=== PATIENT | female | born 1950 | race Caucasian/White ===

== ENCOUNTER → 2017-09-16 | Outpatient (CLI) | payer BC ==
--- NOTE | 2017-09-17 13:19 | MM ---
Reason for exam: screening (asymptomatic). Last mammogram was performed 1 year and 2 months ago. History: Patient is postmenopausal and is nulliparous. Benign stereotactic core biopsy of the left breast, May 15, 1999. Core biopsy of the left breast. Taking estrogen for 12 years. Physical Findings: A clinical breast exam by your physician is recommended on an annual basis and results should be correlated with mammographic findings. MG Screening Mammo w CAD Bilateral CC and MLO view(s) were taken. Prior study comparison: July 16, 2016, bilateral MG screening mammo w CAD. June 27, 2015, bilateral MG screening mammo w CAD. There are scattered fibroglandular densities. There are few typically benign round calcifications in both breasts. Previous mammotome biopsy in the left breast. There is no discrete abnormality. ASSESSMENT: Benign, BI-RAD 2 RECOMMENDATION: Routine screening mammogram of both breasts in 1 year.
== END | disposition home or self-care (01) ==
LOC: RADMAMWWP 11:10
PROVIDERS: ATTEND Obstetrics & Gynecology
DX: Z12.31 Encounter for screening mammogram for malignant neoplasm of breast (principal)
CPT/HCPCS: 77067

== ENCOUNTER → 2018-10-06 | Outpatient (CLI) | payer BC ==
--- NOTE | 2018-10-07 11:21 | MM ---
Reason for exam: screening (asymptomatic). Last mammogram was performed 1 year and 1 month ago. History: Patient is postmenopausal and is nulliparous. Benign stereotactic core biopsy of the left breast, May 15, 1999. Core biopsy of the left breast. Taking estrogen for 12 years. Physical Findings: A clinical breast exam by your physician is recommended on an annual basis and results should be correlated with mammographic findings. MG Screening Mammo w CAD Bilateral CC and MLO view(s) were taken. Prior study comparison: September 16, 2017, bilateral MG screening mammo w CAD. July 16, 2016, bilateral MG screening mammo w CAD. There are scattered fibroglandular densities. No significant changes when compared with prior studies. ASSESSMENT: Benign, BI-RAD 2 RECOMMENDATION: Routine screening mammogram of both breasts in 1 year.
== END | disposition home or self-care (01) ==
LOC: RADMAMWWP 11:32
PROVIDERS: ATTEND Obstetrics & Gynecology
DX: Z12.31 Encounter for screening mammogram for malignant neoplasm of breast (principal)
CPT/HCPCS: 77067

== ENCOUNTER → 2018-11-16 | Outpatient (CLI) | payer BC ==
--- NOTE | 2018-11-17 12:08 | BD ---
EXAMINATION TYPE: Axial Bone Density DATE OF EXAM: 11/16/2018 COMPARISON: 2013 CLINICAL HISTORY: Postmenopausal female. Osteoporosis screening. Height: 65 Weight: 219 FRAX RISK QUESTIONS: Alcohol (3 or more units per day): no Family History (Parent hip fracture): no Glucocorticoids (More than 3mos): no (Ex: prednisone, prednisolone, methylprednisolone, dexamethasone, and hydrocortisone). History of Fracture in Adulthood: no Secondary Osteoporosis: 1. Type 1 Diabetes: no 2. Hyperthyroidism: no 3. Menopause before 45: yes 4. Malnutrition: no 5. Chronic liver disease: no Rheumatoid Arthritis: no Current Tobacco Use: no RISK FACTORS HISTORY OF: Family History of Osteoporosis: no Active: yes Diet low in dairy products/other sources of calcium: no Postmenopausal woman: yes Take estrogen and/or progesterone medications: not now How long: over 12 years Lost more than 2 inches in height since high school: no, however patient states height may have been 67 inches at one time Frequent falls: no Poor Health: no Hyperparathyroidism: no Adrenal Insufficiency: no MEDICATIONS: Prednisone or other steroids: no Thyroid Medications: no Osteoporosis Medications: no Additional Medications: calcium, blood pressure meds, cholesterol meds Additional History: just stopped hormones EXAM MEASUREMENTS: Bone mineral densitometry was performed using the [employer]. Bone mineral density as measured about the Lumbar spine is: ----- L1-L4(G/cm2): 1.982 T Score Values are as follows: ----- L2: 8.5 ----- L3: 4.9 ----- L4: 5.8 ----- L1-L4: 6.7 Bone mineral density has: Increased 1.4 % since study of: 10/26/2013 Bone mineral density about the R hip (g/cm2): 1.004 Bone mineral density about the L hip (g/cm2): 1.080 T Score values are as follows: -----R Neck: -0.2 -----L Neck: 0.3 -----R Total: 0.3 -----L Total: 0.6 Bone mineral density has: Decreased -2.7% since study of: 10/26/2013 IMPRESSION: Normal (Values between +1 and -1 indicate normal bone mass). Consider repeating this study in 5 year s or sooner if there is some new clinical indication. NOTE: T-SCORE=SD OF THE YOUNG ADULT MEAN.
== END | disposition home or self-care (01) ==
LOC: RADBDWWP 13:14
PROVIDERS: ATTEND Obstetrics & Gynecology
DX: Z13.820 Encounter for screening for osteoporosis (principal); Z78.0 Asymptomatic menopausal state
CPT/HCPCS: 77080

== ENCOUNTER → 2019-10-11 | Outpatient (CLI) | payer BC ==
--- NOTE | 2019-10-12 11:17 | MM ---
Reason for exam: screening (asymptomatic). Last mammogram was performed 1 year ago. History: Patient is postmenopausal and is nulliparous. Benign stereotactic core biopsy of the left breast, May 15, 1999. Core biopsy of the left breast. Took hormonal contraceptives for 20 years. Took estrogen for 12 years. Physical Findings: A clinical breast exam by your physician is recommended on an annual basis and results should be correlated with mammographic findings. MG Screening Mammo w CAD Bilateral CC and MLO view(s) were taken. Prior study comparison: October 06, 2018, bilateral MG screening mammo w CAD. September 16, 2017, bilateral MG screening mammo w CAD. There are scattered fibroglandular densities. There are benign appearing round calcifications bilaterally. Previous mammotome biopsy in the left breast. There is no discrete abnormality. ASSESSMENT: Benign, BI-RAD 2 RECOMMENDATION: Routine screening mammogram of both breasts in 1 year.
== END | disposition home or self-care (01) ==
LOC: RADMAMWWP 16:44
PROVIDERS: ATTEND Obstetrics & Gynecology
DX: Z12.31 Encounter for screening mammogram for malignant neoplasm of breast (principal)
CPT/HCPCS: 77067

== ENCOUNTER → 2020-07-13 | Outpatient (CLI) | payer BC | END | disposition home or self-care (01) | LOC: LABPAT 13:27 | PROVIDERS: ATTEND Surgery | DX: Z01.818 Encounter for other preprocedural examination (principal); Z20.828 Contact with and (suspected) exposure to other viral communicable diseases | CPT/HCPCS: U0003; C9803 ==

== ENCOUNTER 2020-07-20 08:50 | Day surgery (SDC) | payer BC ==
[2020-07-18 15:07] VITALS: BMI 34.4
[~2020-07-20 08:50] MED LIST: LACTATED RINGERS 1,000 ML IV SCH
[2020-07-20] MEDS ORDERED: LIDOCAINE 1% (10MG/ML) FOR IV START INTRADERMA ONE (09:18)
[2020-07-20 09:21] VITALS: TEMP 97.7
[2020-07-20] MEDS ORDERED: PROPOFOL 10 MG/ML 20 ML VIAL IV ONE (09:46)
--- NOTE | 2020-07-20 10:30 | P.GSHP ---
History of Present Illness H&P Date: 07/20/20 69-year-old female presents today for screening colonoscopy. She states that in her past colonoscopy she has had a polyp found. She denies any blood in her stool. She denies any changes in bowel function. - Review of Systems All systems: negative Past Medical History Past Medical History: Hyperlipidemia, Hypertension Additional Past Medical History / Comment(s): hx colon polyps History of Any Multi-Drug Resistant Organisms: None Reported Past Surgical History: Hysterectomy Past Anesthesia/Blood Transfusion Reactions: No Reported Reaction, Postoperative Nausea & Vomiting (PONV) Smoking Status: Never smoker Medications and Allergies Home Medications Medication Instructions Recorded Confirmed Type Ascorbic Acid [Vitamin C] 500 mg PO DAILY 07/18/20 07/20/20 History Glucos Sul 2Kcl/MSM/Chond/C/Mn 1 each PO DAILY 07/18/20 07/20/20 History [Glucosamine Chondroitin Cap] Multivitamins, Thera [Multivitamin 1 tab PO DAILY 07/18/20 07/20/20 History (formulary)] amLODIPine BESYLATE 5 mg PO DAILY 07/18/20 07/20/20 History lisinopriL [Zestril] 20 mg PO BID 07/18/20 07/20/20 History Allergies Allergy/AdvReac Type Severity Reaction Status Date / Time latex Allergy Anaphylaxis Verified 07/20/20 09:04 Surgical - Exam Osteopathic Statement: *. No significant issues noted on an osteopathic structural exam other than those noted in the History and Physical/Consult. Vital Signs Temp Pulse Resp BP Pulse Ox 97.7 F 85 18 123/58 94 L 07/20/20 09:15 07/20/20 09:15 07/20/20 09:15 07/20/20 09:15 07/20/20 09:15 - General well nourished, no distress - ENT no hearing loss - Neck trachea midline - Respiratory normal respiratory effort - Abdomen Abdomen: soft, non tender - Psychiatric oriented to time, oriented to person, oriented to place Assessment and Plan Plan: Plan for screening colonoscopy. Risks, benefits and alternatives to the procedure were split to the patient. The patient did provide consent. Recommendations after procedure.
--- NOTE | 2020-07-20 10:32 | P.PCN ---
Date of Procedure: 07/20/20 Preoperative Diagnosis: Screening for colon cancer Postoperative Diagnosis: Redundant colon Internal hemorrhoids Procedure(s) Performed: Colonoscopy Anesthesia: MAC Surgeon: Galen Short Pathology: none sent Condition: stable Disposition: same day Indications for Procedure: 69-year-old female presents for screening colonoscopy. Risks, benefits and alternatives were provided to the patient. Patient did provide consent prior to entering the endoscopy suite. Operative Findings: Extremely redundant colon Internal hemorrhoids Description of Procedure: The patient was brought into the endoscopy suite. He was then placed in left lateral decubitus position and adequate sedation was achieved using conscious sedation. A digital rectal exam was performed and mild internal hemorrhoids were palpated. An endoscope was then placed in the rectum and advanced to the cecum as identified by landmarks including the appendiceal orifice and the ileocecal valve. The prep was good. The colonoscope was then slowly withdrawn, examining for any mucosal abnormalities. The cecum, ascending, transverse, descending and sigmoid colon were visualized adequately. There were no large neoplastic lesions throughout the colon. There were no obvious polyps noted throughout the colon. There was no evidence of diverticulosis. The colon was noted to be extremely redundant. Retroflexion was performed in the rectum and mild internal hemorrhoids were visible. Excess air was removed, the colonoscope withdrawn and the procedure terminated. The patient was then transferred to the recovery unit in stable condition. Repeat colonoscopy should be performed in 5 years based on the patient's history of colon polyps..
[2020-07-20 10:33] VITALS: RESP 16
[2020-07-20] MEDS ORDERED: ONDANSETRON 4 MG/2 ML VIAL ONE (10:44)
[2020-07-20] MEDS ORDERED: ONDANSETRON 4 MG/2 ML VIAL IVP ONE (10:47)
[2020-07-20 10:53] VITALS: BP 143/85; PULSE 59
== END 2020-07-20 11:23 | disposition home or self-care (01) ==
LOC: ORWHC2ENDO 08:50
PROVIDERS: ATTEND Surgery
DX: Z12.11 Encounter for screening for malignant neoplasm of colon (principal); Q43.8 Other specified congenital malformations of intestine; K64.8 Other hemorrhoids; Z86.010 Personal history of colon polyps; E78.5 Hyperlipidemia, unspecified; I10 Essential (primary) hypertension; Z90.710 Acquired absence of both cervix and uterus; Z98.890 Other specified postprocedural states; Z79.899 Other long term (current) drug therapy; Z91.040 Latex allergy status
CPT/HCPCS: J2405; J2704; G0105

== ENCOUNTER 2021-02-06 07:35 | Day surgery (SDC) | payer BC ==
[2021-01-31 15:32] VITALS: BMI 36.0
[~2021-02-06 07:35] MED LIST changes: +DEXAMETHASONE SOD PHOSPHATE 4 MG/ML 1 ML VIAL IV ONE; -LACTATED RINGERS 1,000 ML IV SCH; +LIDOCAINE 1% (10MG/ML) FOR IV START INTRADERMA PRN; +MIDAZOLAM 2 MG/2 ML VIAL IV PRN; +ONDANSETRON 4 MG/2 ML VIAL IVP ONE; +ceFAZolin 1,000 MG in SODIUM CHLORIDE 0.9% IRRIGATIO 1,000 ML IRRIGATION PRN
[2021-02-06] MEDS: LACTATED RINGERS 1,000 ML IV SCH (08:04)
[2021-02-06] MEDS ORDERED: methylPREDNISolone ACETATE 80 MG/ML 1 ML VIAL INJ ONE (09:01)
[2021-02-06] MEDS ORDERED: GELATIN SPONGE,ABSORB (LARGE) 1 EACH SPONGE TOPICAL ONE (09:01)
[2021-02-06] MEDS ORDERED: THROMBIN (BOVINE) 5,000 UNIT VIAL TOPICAL ONE (09:02)
[2021-02-06] MEDS ORDERED: SUCCINYLCHOLINE CHLORIDE 100 MG/5 ML SYR IV ONE (09:22)
[2021-02-06] MEDS ORDERED: ePHEDrine SULFATE/0.9% NACL/PF 50 MG/5 ML SYRINGE IV ONE (09:22)
[2021-02-06] MEDS ORDERED: MIDAZOLAM 2 MG/2 ML VIAL ONE (09:22)
[2021-02-06] MEDS ORDERED: GLYCOPYRROLATE 0.2 MG/ML 2 ML VIAL ONE (09:22)
[2021-02-06] MEDS ORDERED: PHENYLEPHRINE-0.9% NACL SYG 1,000 MCG/10 ML SYRINGE ONE (09:22)
[2021-02-06] MEDS ORDERED: NEOSTIGMINE 1 MG/ML 10 ML VIAL ONE (09:22)
[2021-02-06] MEDS ORDERED: LIDOCAINE 1% INJ 10MG/ML (20 ML MDV) ONE (09:22)
[2021-02-06] MEDS ORDERED: KETAMINE 10 MG/ML 20 ML VIAL ONE (09:22)
[2021-02-06] MEDS ORDERED: fentaNYL (PF) 50 MCG/ML 2 ML AMP ONE (09:22)
[2021-02-06] MEDS ORDERED: PROPOFOL 10 MG/ML 20 ML VIAL IV ONE (09:22)
[2021-02-06] MEDS ORDERED: ROCURONIUM 10 MG/ML (5 ML VIAL) IV ONE (09:22)
[2021-02-06] MEDS ORDERED: LIDOCAINE 1%-EPI 1:100,000 20 ML VIAL SQ ONE (09:58)
[2021-02-06] MEDS ORDERED: LACTATED RINGERS 1,000 ML IV ONE (10:53)
[2021-02-06] MEDS ORDERED: HYDROmorphone 1 MG/ML 1 ML SYRINGE IVP PRN (11:13)
[2021-02-06] MEDS ORDERED: HYDROmorphone 0.5 MG/0.5 ML SYRINGE IVP PRN (11:13)
[2021-02-06] MEDS ORDERED: BENZOCAINE/MENTHOL LOZENG 1 EACH LOZENGE MUCOUS MEM PRN (11:13)
[2021-02-06] MEDS ORDERED: KETOROLAC 15 MG/ML 1 ML VIAL IVP PRN (11:14)
[2021-02-06] MEDS ORDERED: ONDANSETRON 4 MG/2 ML VIAL IVP PRN (11:14)
[2021-02-06] MEDS ORDERED: IBUPROFEN 600 MG TAB PO PRN (11:14)
[2021-02-06] MEDS ORDERED: CYCLOBENZAPRINE 10 MG TAB PO PRN (11:14)
[2021-02-06] MEDS ORDERED: ACETAMINOPHEN TAB 325 MG TAB PO PRN (11:14)
[2021-02-06] MEDS ORDERED: traMADol 50 MG TAB PO PRN (11:16)
--- NOTE | 2021-02-06 11:28 | P.OP ---
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 Blackburn File System Installer: Claudio Ferreira is present throughout the entire the case persistence during positioning, dissection, exposure, visualization, and all crucial elements of the case as well as closure. Anesthesia: General anesthesia per Dr. Dr. Denny Estimated blood loss: Approximately 50 mL Complications: None apparent Components implanted: None Disposition: To recovery room in good stable condition. OPERATIVE INDICATIONS The patient has been having issues in their lower back and lower extremities. She has a number of degenerative changes at her lumbar spine with asymmetric disc degeneration and facet arthrosis. She has been having regular pain over the past several years but had significant increased pain in her right lower extremity. She is found have a significant right far lateral disc herniation at L3 4 which correlate well with her new right lower extremity symptoms. The patient has been through conservative treatment. She is not having any prolonged benefit despite aggressive conservative care. We discussed the possibility of decompression alone versus the possibility of decompression and and fusion. The patient was hopeful to prevent fusion surgery. She had significant foraminal stenosis due to the far lateral disc herniation and we felt that she may have good relief of her new leg pain with decompression at that level with discectomy. We discussed various treatment options including surgery, and the patient wishes to proceed with surgery We discussed the risk, patient's alternatives and benefits of surgery including but not limited to, risk of bleeding risk of infection, risk of need for further surgery, risk of decreased, loss of motion, loss of function, nerve damage, paralysis, heart a ttack, blindness and . OPERATIVE SUMMARY After discussing all the risks, patient alternatives and benefits at length, the patient elected to proceed with surgical intervention, signed informed consent, and presented for their procedure. The patient was seen and examined in the preoperative holding area and the surgical site was marked. The patient was given antibiotics and brought to the operating room. The patient was sedated and intubated by anesthesia in standard fashion. The patient was positioned on to the operating room table in a prone position on the appropriate frame which was well-padded and well molded. We were careful to pad any bony prominences and pressure points. We were careful to maintain the patient's cervical spine and good neutral alignment and position throughout. The patient was prepped and draped in a normal standard fashion. An appropriate timeout and keystone protocol performed. We were able to proceed with the surgery. Fluoroscopy was utilized to establish the appropriate level. The local wound area was infiltrated with local anesthetic. An incision was made at the midline longitudinally over the appropriate levels at L3 4 on the right. Dissection was taken down subcutaneously to the level of the fascia which was split midline. Dissection was taken over the lamina. Intraoperative fluoroscopy was taken which showed a marker at the appropriate level at L3 4 on the right. With the appropriate level positively confirmed, we were able to proceed with laminectomy. The wound was copiously irrigated and suctioned dry as had been done periodically throughout the case. I performed a laminectomy with a combination of curettes and a high-speed bur and Kerrison rongeurs. A small medial facetectomy was performed again further access. A partial foraminotomy was also performed. I tried to preserve as much of the facet as possible to maintain stability and undermined significant stenosis at the undersurface the facet to gain access to the disc space. Portions of the ligamentum flavum were taken down to expose the dura and traversing nerve root. I was able to mobilize the traversing nerve root and gain access to the disc space. Note was made of obvious compression from the disc. There is significant spurring and severe foraminal stenosis. I was able get decompression dorsally. Protecting the soft tissue structures, a small annulotomy was established. I was able to perform discectomy and remove any extruded disc fragments and any loose fragments from within the disc itself. There is some severe disc desiccation noted. I tried to preserve the disc annulus that appeared stable. There were no further extruded fragments noted. There is no evidence of dural tear or leak. Good hemostasis maintained. The wound was copiously irrigated and suctioned dry. Good decompression and discectomy was noted. We were able to proceed with closure. The fascia was closed for a watertight closure. The subcuticular tissue was closed with absorbable suture. The wound was cleaned and dried and dressed with the appropriate dressing. The drapes were broken down. The patient was gently rolled back onto their hospital bed being careful to maintain their cervical spine and good neutral alignment and position. They were woken up by anesthesia, extubated, and brought to the recovery room in good stable condition. The patient will be admitted to the hospital for observation and for appropriate postoperative care, medical management and monitoring. We will continue to follow them closely about the postoperative course.
[2021-02-06] MEDS: HYDROmorphone 0.5 MG/0.5 ML SYRINGE IVP PRN ×2 (11:33→12:09)
[2021-02-06] MEDS ORDERED: ONDANSETRON 4 MG/2 ML VIAL IVP ONE (11:49)
[2021-02-06] MEDS: SODIUM CHLORIDE 0.9% 1,000 ML IV SCH ×2 (14:41→17:06)
[2021-02-06] MEDS: HYDROcodone/APAP 5-325MG 1 EACH TAB PO PRN ×2 (17:03→20:37)
--- NOTE | 2021-02-06 17:23 | XR ---
EXAMINATION TYPE: XR lumbar spine 1V, FL guidance operating room DATE OF EXAM: 02/06/2021 COMPARISON: NONE HISTORY: Fluoroscopic images from intraoperative IMPRESSION: There is 6 seconds of fluoroscopy time for one nondiagnostic lumbar image.
[2021-02-06] MEDS: lisinopriL 20 MG TAB PO SCH (20:37)
[2021-02-06] MEDS ORDERED: ATORVASTATIN 10 MG TAB PO SCH (21:00)
[2021-02-07] MEDS: LACTATED RINGERS 1,000 ML IV SCH (04:42)
[2021-02-07] MEDS: HYDROcodone/APAP 5-325MG 1 EACH TAB PO PRN ×2 (06:15→10:15)
[2021-02-07] MEDS: lisinopriL 20 MG TAB PO SCH (07:33)
[2021-02-07 07:40] VITALS: BP 130/81; PULSE 71; RESP 17; TEMP 98
[2021-02-07] MEDS ORDERED: SENNOSIDES-DOCUSATE SODIUM 1 EACH TAB PO SCH (09:00)
[2021-02-07] MEDS ORDERED: ESCITALOPRAM 10 MG TAB PO SCH (09:00)
[2021-02-07] MEDS ORDERED: MULTIVITAMINS, THERA 1 EACH TAB PO SCH (09:00)
[2021-02-07] MEDS ORDERED: NON FORMULARY DRUG (Glucos Sul 2kcl/Msm/Chond/C/Mn [Glucosamine Chondroitin Cap] 1 EACH Ca PO SCH (09:00)
[2021-02-07] MEDS ORDERED: ASCORBIC ACID 500 MG TAB PO SCH (09:00)
[2021-02-07] MEDS ORDERED: amLODIPine 5 MG TAB PO SCH (09:00)
--- NOTE | 2021-02-07 09:56 | P.DS ---
Providers Date of admission: 02/06/21 Attending physician: Rosa Blackburn Primary care physician: Doron [facility] Course: The patient presented on the day of admission as per their operative note.she underwent laminectomy decompression at L3 4 for her severe stenosis and lateral disc herniation lower extremity radiculopathy. She is having some improvement in her leg but there is still some numbness tingling. Her pain is being controlled overnight. Physical Exam The incision site is clean dry and intact. There is no erythema no drainage. There is no purulence no evidence of infection.her back dressing is clear Abdomen soft and nontender. Chest has good excursion with deep inspiration and expiration. The patient has active and passive range of motion intact at the upper and lower extremities. There is no acute change in neurologic status.she has sustained dorsiflexion plantar flexion and EHL intact Hospital Course postoperative day #1 status post decompression laminectomy discectomy at L3 4 for her severe foraminal stenosis and lateral disc herniation lower extremity radiculopathy The patient has been making good progress postoperatively. They have completed the prophylactic antibiotics without any signs or symptoms of infection. The patient has been able to advance their diet, and is tolerating diet adequately. The pain was initially controlled with IV medications and is now controlled appropriately with oral medications. The patient has been able to increase their mobilization. The patient has progressed appropriately. I think they are in good stable condition for discharge today. They will be sent home with appropriate prescriptions. I answered their questions to the best of my ability in a language that they can understand and they are agreeable with the plan. They will follow up as directedin approximately 2 weeks or sooner if she is having any problems. Patient Condition at Discharge: Good Plan - Discharge Summary Discharge Rx Participant: Yes New Discharge Prescriptions: New HYDROcodone/APAP 5-325MG [[place]ber[place] 5] 1 each PO Q4HR PRN #42 tab PRN Reason: Pain No Action Glucos Sul 2Kcl/MSM/Chond/C/Mn [Glucosamine Chondroitin Cap] 1 each PO DAILY Ascorbic Acid [Vitamin C] 500 mg PO DAILY Multivitamins, Thera [Multivitamin (formulary)] 1 tab PO DAILY lisinopriL [Zestril] 20 mg PO BID amLODIPine BESYLATE 5 mg PO DAILY traMADol HCL [Ultram] 100 mg PO Q8HR PRN PRN Reason: Pain Atorvastatin Calcium [Lipitor] 10 mg PO HS Escitalopram Oxalate [Lexapro] 10 mg PO DAILY Ibuprofen [Motrin] 800 mg PO QID Discharge Medication List Ascorbic Acid [Vitamin C] 500 mg PO DAILY 07/18/20 [History] Glucos Sul 2Kcl/MSM/Chond/C/Mn [Glucosamine Chondroitin Cap] 1 each PO DAILY 07/18/20 [History] Multivitamins, Thera [Multivitamin (formulary)] 1 tab PO DAILY 07/18/20 [History] amLODIPine BESYLATE 5 mg PO DAILY 07/18/20 [History] lisinopriL [Zestril] 20 mg PO BID 07/18/20 [History] Atorvastatin Calcium [Lipitor] 10 mg PO HS 01/31/21 [History] Escitalopram Oxalate [Lexapro] 10 mg PO DAILY 01/31/21 [History] Ibuprofen [Motrin] 800 mg PO QID 01/31/21 [History] traMADol HCL [Ultram] 100 mg PO Q8HR PRN 01/31/21 [History] HYDROcodone/APAP 5-325MG [C[place]ber[place]on 5] 1 each PO Q4HR PRN #42 tab 02/06/21 [Rx] Follow up Appointment(s)/Referral(s): Rosa Blackburn DO [Doctor of Osteopathic Medicine] - 02/19/21 9:45 am Doron Church DO [Primary Care Provider] - 02/14/21 8:00 am (Appt. with DIRECTOR OF PRIMARY CARE) Patient Instructions/Handouts: *Surgery [facility] - Scopalamine Patch Instructions Activity/Diet/Wound Care/Special Instructions: Keep site clean. May shower with waterproof Tegaderm intact. Do not soak in a tub. After 72 hours postoperatively, patient May remove dressing and then may shower with area uncovered. Leave glue intact and allow it to fray off on its own. May ambulate as tolerated. Avoid heavy or rigorous activity. No repetitive bending twisting or lifting. No overhead work. Discharge Disposition: HOME SELF-CARE
== END 2021-02-07 11:18 | disposition home or self-care (01) ==
LOC: OR 07:35 → 4SSUR 11:19 → OR 02-07 11:18
PROVIDERS: ATTEND Orthopaedic Surgery Orthopaedic Surgery of the Spine
DX: M51.16 Intervertebral disc disorders with radiculopathy, lumbar region (principal); M47.26 Other spondylosis with radiculopathy, lumbar region; M48.061 Spinal stenosis, lumbar region without neurogenic claudication; I10 Essential (primary) hypertension; E11.9 Type 2 diabetes mellitus without complications; J45.909 Unspecified asthma, uncomplicated; Z20.822 Contact with and (suspected) exposure to COVID-19; E78.5 Hyperlipidemia, unspecified; F32.9 Major depressive disorder, single episode, unspecified; Z90.710 Acquired absence of both cervix and uterus; Z83.3 Family history of diabetes mellitus; Z82.49 Family history of ischemic heart disease and other diseases of the circulatory system; Z72.0 Tobacco use; Z79.1 Long term (current) use of non-steroidal anti-inflammatories (NSAID); Z79.891 Long term (current) use of opiate analgesic; Z79.899 Other long term (current) drug therapy; Z91.040 Latex allergy status
CPT/HCPCS: 97161; 87635; 72020; 63047; J2250; J1040; J2710; J0690 ×3; J2405; J2001; J3010; J1170 ×2; J1885; J2370; J0330; J2704

== ENCOUNTER → 2021-07-26 | Outpatient (CLI) | payer BC ==
--- NOTE | 2021-07-30 09:06 | MM ---
Reason for exam: screening (asymptomatic). Last mammogram was performed 1 year and 9 months ago. History: Patient is postmenopausal and is nulliparous. Benign stereotactic core biopsy of the left breast, May 15, 1999. Core biopsy of the left breast. Took hormonal contraceptives for 20 years. Took estrogen for 12 years. Physical Findings: A clinical breast exam by your physician is recommended on an annual basis and results should be correlated with mammographic findings. MG 3D Screening Mammo W/Cad Bilateral CC and MLO view(s) were taken. Prior study comparison: October 11, 2019, bilateral MG screening mammo w CAD. October 06, 2018, bilateral MG screening mammo w CAD. The breast tissue is almost entirely fat. Previous mammotome biopsy in the left breast. No significant changes when compared with prior studies. ASSESSMENT: Negative, BI-RAD 1 RECOMMENDATION: Routine screening mammogram of both breasts in 1 year.
== END | disposition home or self-care (01) ==
LOC: RADMAMWWP 13:16
PROVIDERS: ATTEND Obstetrics & Gynecology
DX: Z12.31 Encounter for screening mammogram for malignant neoplasm of breast (principal); Z78.0 Asymptomatic menopausal state
CPT/HCPCS: 77063; 77067

== ENCOUNTER → 2022-07-30 | Outpatient (CLI) | payer BC ==
--- NOTE | 2022-07-31 18:41 | MM ---
Reason for Exam: Screening (asymptomatic). Last screening mammogram was performed 12 month(s) ago. Patient History: Menarche at age 13. Patient has no children. Hysterectomy at age 45. Postmenopausal. Patient used Estrogen for 12 years. Patient used Hormonal Contraceptives for 20 years. Core Biopsy on the Left side. 05/15/1999, Benign Stereotactic Core Biopsy on the left side. Risk Values: Liane 5 year model risk: 3.1%. NCI Lifetime model risk: 9.5%. Prior Study Comparison: 10/06/2018 Bilateral Screening Mammogram, [facility]. 10/11/2019 Bilateral Screening Mammogram, [facility]. 07/26/2021 Bilateral Screening Mammogram, [facility]. Tissue Density: There are scattered fibroglandular densities. Findings: Analyzed By CAD. Microclip anterior left breast from prior biopsy. There is no suspicious group of microcalcifications or new suspicious mass in either breast. Overall Assessment: Negative, BI-RAD 1 Management: Screening Mammogram of both breasts in 1 year. 1. Patient should continue monthly self breast exams. 2. A clinical breast exam by your physician is recommended on an annual basis. 3. This exam should not preclude additional follow-up of suspicious palpable abnormalities. Electronically signed and approved by: Sheridan George M.D. Radiologist
== END | disposition home or self-care (01) ==
LOC: RADMAMWWP 12:42
PROVIDERS: ATTEND Obstetrics & Gynecology
DX: Z12.31 Encounter for screening mammogram for malignant neoplasm of breast (principal); Z78.0 Asymptomatic menopausal state
CPT/HCPCS: 77063; 77067

== ENCOUNTER → 2023-08-24 | Outpatient (CLI) | payer BC ==
--- NOTE | 2023-08-25 09:54 | MM ---
Reason for Exam: Screening (asymptomatic). Last mammogram was performed 1 year(s) and 1 month(s) ago. Patient History: Menarche at age 13. Patient has no children. Hysterectomy at age 45. Postmenopausal. Patient used Estrogen for 12 years. Patient used Hormonal Contraceptives for 20 years. Core Biopsy on the Left side. 05/15/1999, Benign Stereotactic Core Biopsy on the left side. Risk Values: Liane 5 year model risk: 3.2%. NCI Lifetime model risk: 9.1%. Prior Study Comparison: 10/11/2019 Bilateral Screening Mammogram, [facility]. 07/26/2021 Bilateral Screening Mammogram, [facility]. 07/30/2022 Bilateral MG 3D screening mammo w/cad, [facility]. Tissue Density: There are scattered fibroglandular densities. Findings: Analyzed By CAD. There is no suspicious group of microcalcifications or new suspicious mass. Benign-appearing calcifications bilaterally. Overall Assessment: Benign, BI-RAD 2 Management: Screening Mammogram of both breasts in [address] [facility] will attempt to contact patient to return for supplemental views and ultrasound if indicated. Patient should continue monthly self-breast exams. A clinical breast exam by your physician is recommended on an annual basis. This exam should not preclude additional follow-up of suspicious palpable abnormalities. Note on Liane scores and lifetime risk: 1. A Liane score greater than 3% is considered moderate risk. If this is the case, consider specialist referral to assess eligibility for a risk reducing agent. 2. If overall lifetime risk for the development of breast cancer is 20% or higher, the patient may qualify for future screening with alternating mammogram and breast MRI. Electronically signed and approved by: Gonzalez Soto DO
== END | disposition home or self-care (01) ==
LOC: RADMAMWWP 14:59
PROVIDERS: ATTEND Obstetrics & Gynecology
DX: Z12.31 Encounter for screening mammogram for malignant neoplasm of breast (principal); Z78.0 Asymptomatic menopausal state
CPT/HCPCS: 77063; 77067

== ENCOUNTER → 2023-08-31 | Outpatient (CLI) | payer BC ==
--- NOTE | 2023-08-31 17:57 | BD ---
EXAMINATION TYPE: Axial Bone Density DATE OF EXAM: 08/31/2023 CLINICAL HISTORY: 72 years old Female. ICD-10 CODE: N95.1 MENOPAUSAL AND FEMALE CLIMACTERIC STATES Height: 5 ft 4 in Weight: 220 FRAX RISK QUESTIONS: Alcohol (3 or more units per day): no Family History (Parent hip fracture): no Glucocorticoids (More than 3mos): no (Ex: prednisone, prednisolone, methylprednisolone, dexamethasone, and hydrocortisone). History of Fracture in Adulthood: no Secondary Osteoporosis: 1. Type 1 Diabetes: no 2. Hyperthyroidism: no 3. Menopause before 45: yes 4. Malnutrition: no 5. Chronic liver disease: no Rheumatoid Arthritis: no Current Tobacco Use: marijuana RISK FACTORS HISTORY OF: Surgery to Spine/Hip(right/left)/Wrist (right/left): lumbar surg When: 2020 MEDICATIONS: Thyroid Medications: none Osteoporosis Medications: none EXAM MEASUREMENTS: Bone mineral densitometry was performed using the Kash System. Bone mineral density as measured about the Lumbar spine is: ----- L1-L4(G/cm2): 1.862 T Score Values are as follows: ----- L1: 5.1 ----- L2: 6.5 ----- L3: 5.4 ----- L4: 5.6 ----- L1-L4: 5.7 Z Score Values are as follows: ----- L1: 5.6 ----- L2: 7.0 ----- L3: 5.9 ----- L4: 6.1 ----- L1-L4: 6.2 Bone mineral density has: decreased -6.1 % since study of: 2019 Bone mineral density about the R hip (g/cm2): 0.915 Bone mineral density about the L hip (g/cm2): 0.884 T Score values are as follows: -----R Neck: -0.9 -----L Neck: -1.1 -----R Total: -0.5 -----L Total: 0.0 Z Score values are as follows: -----R Neck: 0.1 -----L Neck: -0.1 -----R Total: 0.1 -----L Total: 0.7 Bone mineral density has: decreased -8.5 % since study of: 2019 FRAX%s: The graph provided illustrates a 8.3 % chance for a major osteoporotic fx and a 0.9 % chance for the hips probability for fx in 10 years time. IMPRESSION: Osteopenia (T Score between -2.5 and -1). There is slightly increased risk of fracture and the patient may be considered for treatment. Re-Screen 2-5 years. NOTE: T-SCORE=SD OF THE YOUNG ADULT MEAN.
== END | disposition home or self-care (01) ==
LOC: RADBDWWP 13:38
PROVIDERS: ATTEND Obstetrics & Gynecology
DX: Z12.31 Encounter for screening mammogram for malignant neoplasm of breast (principal); N95.1 Menopausal and female climacteric states; M85.852 Other specified disorders of bone density and structure, left thigh
CPT/HCPCS: 77080

== ENCOUNTER → 2024-09-02 | Outpatient (CLI) | payer MEDICARE ==
--- NOTE | 2024-09-02 18:12 | MM ---
Reason for Exam: Screening (asymptomatic). Last screening mammogram was performed 12 month(s) ago. Patient History: Menarche at age 13. Patient has no children. Hysterectomy at age 45. Postmenopausal. Patient used Estrogen for 12 years. Patient used Hormonal Contraceptives for 20 years. Core Biopsy on the Left side. 05/15/1999, Benign Stereotactic Core Biopsy on the left side. Risk Values: Liane 5 year model risk: 3.2%. NCI Lifetime model risk: 8.7%. Prior Study Comparison: 07/26/2021 Bilateral Screening Mammogram, [facility]. 07/30/2022 Bilateral MG 3D screening mammo w/cad, [facility]. 08/24/2023 Bilateral MG 3D screening mammo w/cad, [facility]. Tissue Density: There are scattered areas of fibroglandular density. Findings: Analyzed By CAD. Microclip left breast from prior biopsy. There is no suspicious group of microcalcifications or new suspicious mass in either breast. Overall Assessment: Negative, BI-RAD 1 Management: Screening Mammogram of both breasts in 1 year. See note below in regards to patient's increased 5 year Liane score. Patient should continue monthly self-breast exams. A clinical breast exam by your physician is recommended on an annual basis. This exam should not preclude additional follow-up of suspicious palpable abnormalities. Note on Liane scores and lifetime risk: 1. A Liane score greater than 3% is considered moderate risk. If this is the case, consider specialist referral to assess eligibility for a risk reducing agent. 2. If overall lifetime risk for the development of breast cancer is 20% or higher, the patient may qualify for future screening with alternating mammogram and breast MRI. [facility], , 09/02/2024 6:09 PM. Electronically signed and approved by: Sheridan George M.D. Radiologist
== END | disposition home or self-care (01) ==
LOC: RADMAMWWP 14:38
PROVIDERS: ATTEND Family Medicine
DX: Z12.31 Encounter for screening mammogram for malignant neoplasm of breast (principal); R92.323 Mammographic fibroglandular density, bilateral breasts; Z78.0 Asymptomatic menopausal state
CPT/HCPCS: 77063; 77067

== ENCOUNTER 2024-11-19 09:33 | Inpatient (IN) | payer MEDICARE ==
--- NOTE | 2024-11-19 09:53 | ED ---
General Adult HPI - General Chief complaint: Nausea/Vomiting/Diarrhea Stated complaint: NVD Time Seen by Provider: 11/19/24 09:35 Source: patient, RN notes reviewed, old records reviewed Mode of arrival: ambulatory Limitations: no limitations - History of Present Illness Initial comments: This is a 73-year-old female who presents to the emergency department complaining of waking up this morning at 3 AM having diarrhea. Patient states shortly after that she started having nausea and vomiting. Patient states her stomach continues to feel bloated and she has some pain in the left side. Patient denies any fever chills or cough. Patient denies any dysuria hematuria urinary frequency. Patient denies any back pain. Patient denies any chest pain or difficulty breathing - Related Data Home Medications Medication Instructions Recorded Confirmed Ascorbic Acid [Vitamin C] 500 mg PO DAILY 07/18/20 01/31/21 Glucos Sul 2Kcl/MSM/Chond/C/Mn 1 each PO DAILY 07/18/20 01/31/21 [Glucosamine Chondroitin Cap] Multivitamins, Thera [Multivitamin 1 tab PO DAILY 07/18/20 02/06/21 (formulary)] amLODIPine BESYLATE 5 mg PO DAILY 07/18/20 02/06/21 lisinopriL [Zestril] 20 mg PO BID 07/18/20 02/06/21 Atorvastatin Calcium [Lipitor] 10 mg PO HS 01/31/21 02/06/21 Escitalopram Oxalate [Lexapro] 10 mg PO DAILY 01/31/21 02/06/21 Ibuprofen [Motrin] 800 mg PO QID 01/31/21 01/31/21 traMADol HCL [Ultram] 100 mg PO Q8HR PRN 01/31/21 02/06/21 Previous Rx's Medication Instructions Recorded HYDROcodone/APAP 5-325MG [Bingham 5] 1 each PO Q4HR PRN #42 tab 02/06/21 Allergies Allergy/AdvReac Type Severity Reaction Status Date / Time latex Allergy Anaphylaxis Verified 11/19/24 09:37 Review of Systems ROS Statement: Those systems with pertinent positive or pertinent negative responses have been documented in the HPI. ROS Other: All systems not noted in ROS Statement are negative. Past Medical History Past Medical History: Hyperlipidemia, Hypertension Additional Past Medical History / Comment(s): hx colon polyps History of Any Multi-Drug Resistant Organisms: None Reported Past Surgical History: Hysterectomy Past Anesthesia/Blood Transfusion Reactions: No Reported Reaction, Postoperative Nausea & Vomiting (PONV) Past Psychological History: No Psychological Hx Reported Past Drug Use History: None Reported General Exam - General Exam Comments Initial Comments: GENERAL: Patient is well-developed and well-nourished. Patient is nontoxic and well- hydrated and is in mild distress. ENT: Neck is soft and supple. No significant lymphadenopathy is noted. Oropharynx is clear. Moist mucous membranes. Neck has full range of motion without eliciting any pain. EYES: The sclera were anicteric and conjunctiva were pink and moist. Extraocular movements were intact and pupils were equal round and reactive to light. Eyelids were unremarkable. PULMONARY: Unlabored respirations. Good breath sounds bilaterally. No audible rales rhonchi or wheezing was noted. CARDIOVASCULAR: There is a regular rate and rhythm without any murmurs gallops or rubs. ABDOMEN: Patient has point tenderness on the left side SKIN: Skin is clear with no lesions or rashes and otherwise unremarkable. NEUROLOGIC: Patient is alert and oriented x3. Cranial nerves II through XII are grossly intact. Motor and sensory are also intact. Normal speech, volume and content. Symmetrical smile. MUSCULOSKELETAL: Normal extremities with adequate strength and full range of motion. LYMPHATICS: No significant lymphadenopathy is noted PSYCHIATRIC: Normal psychiatric evaluation. Limitations: no limitations Course Vital Signs 11/19/24 11/19/24 09:34 10:49 Temperature 97.9 F 97.6 F Pulse Rate 96 87 Respiratory 18 18 Rate Blood Pressure 191/92 162/79 O2 Sat by Pulse 96 98 Oximetry Medical Decision Making - Medical Decision Making Was pt. sent in by a medical professional or institution (, PA, PORTFOLIO DIRECTOR, urgent care, hospital, or jail...) When possible be specific @ -No Did you speak to anyone other than the patient for history (EMS, parent, family, police, friend...)? What history was obtained from this source @ -No Did you review nursing and triage notes (agree or disagree)? Why? @ -I reviewed and agree with nursing and triage notes Were old charts reviewed (outside hosp., previous admission, EMS record, old EKG, old radiological studies, urgent care reports/EKG's, jail records)? Report findings @ -No old charts were reviewed Differential Diagnosis? @ -Differential Abdominal Pain Women: Appendicitis, Cholecystitis, diverticulosis, ischemic bowel, pancreatitis, hepatitis, UTI, gastroenteritis, AAA, incarcerated hernia, bowel obstruction, co nstipation, inflammatory bowel, hepatitis, peptic ulcer disease, splenic infarction, perforated viscus, vulvitis, ovarian torsion, PID, kidney stone, placenta abruption, this is not meant to be an all-inclusive list EKG interpreted by me (3pts min.). @ -As above X-rays interpreted by me (1pt min.). @ -None done CT interpreted by me (1pt min.). @ -CT of the abdomen pelvis shows a mass 11 x 9 x 6 there is some free fluid in the peritoneum as well U/S interpreted by me (1pt. min.). @ -None done What testing was considered but not performed or refused? (CT, X-rays, U/S, labs)? Why? @ -None What meds were considered but not given or refused? Why? @ -None Did you discuss the management of the patient with other professionals (professionals i.e. , PA, PORTFOLIO DIRECTOR, lab, RT, psych nurse, manager social media, steel estimator, teacher, commanding officer traffic division, case packer)? Give summary @ -I spoke with [facility] they agreed to admit the patient admitted the patient wrote admitting orders Was smoking cessation discussed for >3mins.? @ -No Was critical care preformed (if so, how long)? @ -No Were there social determinants of health that impacted care today? How? (Homelessness, low income, unemployed, alcoholism, drug addiction, transportation, low edu. Level, literacy, decrease access to med. care, penitentiary, rehab)? @ -No Was there de-escalation of care discussed even if they declined (Discuss DNR or withdrawal of care, Hospice)? DNR status @ -No What co-morbidities impacted this encounter? (DM, HTN, Smoking, COPD, CAD, Cancer, CVA, ARF, Chemo, Hep., AIDS, mental health diagnosis, sleep apnea, morbi d obesity)? @ -None Was patient admitted / discharged? Hospital course, mention meds given and route , prescriptions, significant lab abnormalities, going to OR and other pertinent info. @ -Patient's CAT scan showed a possible mass and some fluid in the peritoneum. Patient was given multiple doses of antiemetics as well as some pain meds and she was feeling considerably better. Patient was also given fluid. Undiagnosed new problem with uncertain prognosis? @ -No Drug Therapy requiring intensive monitoring for toxicity (Heparin, Nitro, Insulin, Cardizem)? @ -No Were any procedures done? @ -No Diagnosis/symptom? @ -Abdominal pain Acute, or Chronic, or Acute on Chronic? @ -Acute Uncomplicated (without systemic symptoms) or Complicated (systemic symptoms)? @ -Comp Side effects of treatment? @ -No Exacerbation, Progression, or Severe Exacerbation? @ -No Poses a threat to life or bodily function? How? (Chest pain, [place], [place], pneumonia, PE, COPD, DKA, ARF, appy, cholecystitis, CVA, Diverticulitis, Homicidal, Suicidal, threat to staff... and all critical care pts) @ -Yes this could lead to continued vomiting and dehydration and poor perfusion. Diagnosis/symptom? @ -Intra-abdominal mass and fluid Acute, or Chronic, or Acute on Chronic? @ -Acute Uncomplicated (without systemic symptoms) or Complicated (systemic symptoms)? @ -Complicated Side effects of treatment? @ -None Exacerbation, Progression, or Severe Exacerbation] @ -No Poses a threat to life or bodily function? @ -No - Lab Data Result diagrams: 11/19/24 09:54 11/19/24 09:54 Lab Results 11/19/24 11/19/24 11/19/24 Range/Units 09:54 09:54 09:54 WBC 18.73 H (4.50-10.00) 10*3/uL RBC 4.44 (4.10-5.20) 10*6/uL Hgb 14.2 (12.0-15.0) g/dL Hct 41.3 (37.2-46.3) % MCV 93.0 (80.0-97.0) fL MCH 32.0 (27.0-32.0) pg MCHC 34.4 (32.0-37.0) g/dL Plt Count 438 (140-440) 10*3/uL MPV 10.1 (9.5-12.2) fL Immature Gran % (Auto) 0.5 % Neutrophils % 90.2 % Lymphocytes % 4.4 % Monocytes % 4.4 % Eosinophils % 0.1 % Basophils % 0.4 % Immature Gran # 0.09 H (0.00-0.04) 10*3/uL Neutrophils # 16.91 H (1.80-7.70) 10*3/uL Lymphocytes # 0.82 L (0.90-5.00) 10*3/uL Monocytes # 0.83 (0.20-1.00) 10*3/uL Eosinophils # 0.01 L (0.04-0.35) 10*3/uL Basophils # 0.07 (0.00-0.10) 10*3/uL Sodium 139 (137-145) mmol/L Potassium 3.9 (3.5-5.1) mmol/L Chloride 107 (98-107) mmol/L Carbon Dioxide 19 L (22-30) mmol/L Anion Gap 13 mmol/L BUN 19 H (7-17) mg/dL Creatinine 0.94 (0.52-1.04) mg/dL Est GFR (CKD-EPI)AfAm 71 (>60 ml/min/1.73 sqM) Est GFR (CKD-EPI)NonAf 61 (>60 ml/min/1.73 sqM) Glucose 219 H (74-99) mg/dL Lactic Ac Sepsis Rflx Plasma Lactic Acid Shashi 3.7 H* (0.7-2.0) mmol/L Calcium 10.1 (8.4-10.2) mg/dL Total Bilirubin 0.6 (0.2-1.3) mg/dL AST 20 (14-36) U/L ALT 19 (4-34) U/L Alkaline Phosphatase 113 (38-126) U/L Total Protein 8.0 (6.3-8.2) g/dL Albumin 4.7 (3.5-5.0) g/dL Amylase 79 (30-110) U/L Lipase 129 (23-300) U/L /08/03 Range/Units 10:45 WBC (4.50-10.00) 10*3/uL RBC (4.10-5.20) 10*6/uL Hgb (12.0-15.0) g/dL Hct (37.2-46.3) % MCV (80.0-97.0) fL MCH (27.0-32.0) pg MCHC (32.0-37.0) g/dL Plt Count (140-440) 10*3/uL MPV (9.5-12.2) fL Immature Gran % (Auto) % Neutrophils % % Lymphocytes % % Monocytes % % Eosinophils % % Basophils % % Immature Gran # (0.00-0.04) 10*3/uL Neutrophils # (1.80-7.70) 10*3/uL Lymphocytes # (0.90-5.00) 10*3/uL Monocytes # (0.20-1.00) 10*3/uL Eosinophils # (0.04-0.35) 10*3/uL Basophils # (0.00-0.10) 10*3/uL Sodium (137-145) mmol/L Potassium (3.5-5.1) mmol/L Chloride (98-107) mmol/L Carbon Dioxide (22-30) mmol/L Anion Gap mmol/L BUN (7-17) mg/dL Creatinine (0.52-1.04) mg/dL Est GFR (CKD-EPI)AfAm (>60 ml/min/1.73 sqM) Est GFR (CKD-EPI)NonAf (>60 ml/min/1.73 sqM) Glucose (74-99) mg/dL Lactic Ac Sepsis Rflx Y Plasma Lactic Acid Shashi (0.7-2.0) mmol/L Calcium (8.4-10.2) mg/dL Total Bilirubin (0.2-1.3) mg/dL AST (14-36) U/L ALT (4-34) U/L Alkaline Phosphatase (38-126) U/L Total Protein (6.3-8.2) g/dL Albumin (3.5-5.0) g/dL Amylase (30-110) U/L Lipase (23-300) U/L Disposition Clinical Impression: Intraabdominal mass, Abdominal pain Disposition: ADMITTED IP TO THIS HOSP Referrals: Doron Church DO [Primary Care Provider] - 1-2 days Time of Disposition: 13:27
[2024-11-19] MEDS: DIPHENOX-ATROP 2.5-0.025 MG 1 EACH TAB PO STA (10:01)
[2024-11-19] MEDS: ONDANSETRON 4 MG/2 ML VIAL IVP STA ×2 (10:02→10:34)
[2024-11-19] MEDS: LACTATED RINGERS 1,000 ML IV ONE (10:02)
[2024-11-19 10:03] LABS: Basophils # (A) 0.07 10*3/uL (0.00-0.10); Basophils % (A) 0.4 %; Eosinophils # (A) 0.01 10*3/uL (0.04-0.35); Eosinophils % (A) 0.1 %; HCT 41.3 % (37.2-46.3); HGB 14.2 g/dL (12.0-15.0); Lymphocytes # (A) 0.82 10*3/uL (0.90-5.00); Lymphocytes % (A) 4.4 %; MCHC 34.4 g/dL (32.0-37.0); Mean Platelet Volume 10.1 fL (9.5-12.2); Monocytes # (A) 0.83 10*3/uL (0.20-1.00); Monocytes % (A) 4.4 %; Neutrophils # (A) 16.91 10*3/uL (1.80-7.70); Neutrophils % (A) 90.2 %; Platelet Count 438 10*3/uL (140-440); RBC 4.44 10*6/uL (4.10-5.20); RDW 12.6 % (11.5-14.5); WBC 18.73 10*3/uL (4.50-10.00)
[2024-11-19 10:27] LABS: ALT 19 U/L (4-34); AST 20 U/L (14-36); African American GFR (CKD) 71 (>60 ml/min/1.73 sqM); Albumin 4.7 g/dL (3.5-5.0); Alkaline Phosphatase 113 U/L (38-126); Amylase 79 U/L (30-110); Anion Gap 13 mmol/L; Blood Urea Nitrogen 19 mg/dL (7-17); Calcium 10.1 mg/dL (8.4-10.2); Carbon Dioxide 19 mmol/L (22-30); Chloride 107 mmol/L (98-107); Glucose 219 mg/dL (74-99); Lipase 129 U/L (23-300); Non-African American GFR(CKD) 61 (>60 ml/min/1.73 sqM); Potassium 3.9 mmol/L (3.5-5.1); Sodium 139 mmol/L (137-145); Total Bilirubin 0.6 mg/dL (0.2-1.3)
[2024-11-19] MEDS: KETOROLAC 15 MG/ML 1 ML VIAL IVP STA (10:54)
[2024-11-19] MEDS: SODIUM CHLORIDE 0.9% 1,000 ML IV ONE ×2 (11:29→14:10)
--- NOTE | 2024-11-19 12:41 | CT ---
EXAMINATION TYPE: CT abdomen pelvis w con DATE OF EXAM: 11/19/2024 12:26 PM COMPARISON: None. CLINICAL INDICATION: Female, 73 years old with history of Abdominal pain, high white count, Abodminal pain, high white count TECHNIQUE: Axial images were obtained from above the diaphragm to the pubic rami in the axial plane a t 5 mm thick sections. Reconstructed images are reviewed on the computer in the coronal plane. CONTRAST: 100 ml mL of Isovue 300. Study performed without Oral Contrast DLP: 1717.2 mGycm, Automated exposure control for dose reduction was used. FINDINGS: Limited CT sections are obtained the lung bases. The lung bases are clear. Small hiatal hernia is p resent. CT ABDOMEN: Liver: Normal Spleen: Normal Pancreas: Normal Adrenal glands: The adrenal glands are normal. Gallbladder: Normal Kidneys: Stranding surrounding the left kidney. Mild bilateral prominence of the renal collecting systems are present. The left ureter is somewhat prominent within its proximal portion. 0.5 cm calcification may be within the proximal left ureter. Series 201 and image 49. There is a nonobstructing renal stone in ferior poler left kidney 0.4 cm. There is a posterior lateral inferior pole left renal cyst measuring 1.7 cm. Delayed images were obtained through the kidneys. There is delayed excretion on the left co mpared to the right. Aorta: Vascular calcification is within the aorta. Inferior vena cava: Normal. CT PELVIS: There is lobular ill-defined hypodense mass in the right hemipelvis measuring estimated 11 .0 x 5.7 x 9.2 cm in size. Example image series 201 image 50. Mild ascites is present fluid is within left paracolic gutter. Loops of bowel within the abdomen and pelvis are normal. This study is without oral contrast limi ting bowel evaluation. Appendix: Not clearly identified. No suspicious dilated tubular structure is evident. Urinary bladder: Normal. Genitourinary structures: Uterus is not identified. Adnexa are not identified. Osseous structures: No suspicious lytic or sclerotic lesions. IMPRESSION: 1. Large lobular masslike area measuring 11.0 x 5.7 x 9.2 cm. Adenopathy could be considered. This i s not clearly follow bowel although matted bowel should be considered within the differential. Recomm end oral contrast contrast CT abdomen pelvis for additional evaluation. This appears atypical for abs cess. Omental caking and neoplasm should be considered within the differential. Additional workup rec ommended. 2. Free fluid within the abdomen left paracolic gutter and pelvis. 3. Mild prominence of the renal collecting system. Some mild left hydronephrosis and hydroureter is p resent. An obstructing punctate to 0.5 cm calcification may be present within the mid right ureter. T here is delayed excretion from the left kidney. 4. Consider some pyelonephritis within the differential of the left kidney. 5. Nonobstructing inferior pole left renal stone. [facility], , 11/19/2024 12:38 PM
[2024-11-19 16:56] LABS: Appearance,Urine Clear (Clear); Bilirubin,Urine Negative (Negative); Blood,Urine Small (Negative); Color,Urine Colorless; Glucose,Urine (UA) Trace (Negative); Ketones,Urine Negative (Negative); Leukocyte Esterase,Urine Negative (Negative); Mucus,Urine Rare /hpf; Nitrite,Urine Negative (Negative); Protein,Urine Negative (Negative); RBC,Urine 13 /hpf (0-5); Specific Gravity,Urine 1.028 (1.001-1.035); Squamous Epithelial Cell,Urine <1 /hpf (0-4); Urobilinogen,Urine <2.0 mg/dL (<2.0); WBC,Urine 2 /hpf (0-5)
[2024-11-19] MEDS: ONDANSETRON 4 MG/2 ML VIAL IVP PRN (19:16)
--- NOTE | 2024-11-19 21:13 | P.HPIM ---
History of Present Illness H&P Date: 11/19/24 Chief Complaint: Nausea/vomiting/diarrhea 73-year-old female, history of hypertension, hyperlipidemia, who presents to the emergency department complaining of waking up this morning at 3 AM having diarrhea. Patient states shortly after that she started having nausea and vom iting. Patient states her stomach continues to feel bloated and she has some pain in the left side. Patient denies any fever chills or cough. Patient denies any dysuria hematuria urinary frequency. Patient denies any back pain. Patient denies any chest pain or difficulty breathing Blood work completed in ED reveals a WBC of 18.7, hemoglobin of 14.2 and platelet count of 438, sodium 139, potassium 3.9, BUNs/creatinine of 19/0.94 and blood glucose of 219, lactic acid elevated at 3.7 -CT of the abdomen pelvis shows a mass 11 x 9 x 6 there is some free fluid in the peritoneum as well; a CT with oral contrast is recommended; mild prominence of the renal collecting system. Mild left hydronephrosis and hydroureter is present, and obstructing punctate to 0.5 cm calcification within the mid right ureter; acute pyelonephritis of left kidney cannot be excluded Review of Systems REVIEW OF SYSTEMS: CONSTITUTIONAL: No fever, no malaise, no fatigue. HEENT: No recent visual problems or hearing problems. Denied any sore throat. CARDIOVASCULAR: No chest pain, orthopnea, PND, no palpitations, no syncope. PULMONARY: No shortness of breath, no cough, no hemoptysis. GASTROINTESTINAL: No diarrhea, no nausea, no vomiting, no abdominal pain. NEUROLOGICAL: No headaches, no weakness, no numbness. HEMATOLOGICAL: Denies any bleeding or petechiae. GENITOURINARY: Denies any burning micturition, frequency, or urgency. MUSCULOSKELETAL/RHEUMATOLOGICAL: Denies any joint pain, swelling, or any muscle pain. ENDOCRINE: Denies any polyuria or polydipsia. The rest of the 14-point review of systems is negative. Past Medical History Past Medical History: Hyperlipidemia, Hypertension Additional Past Medical History / Comment(s): hx colon polyps History of Any Multi-Drug Resistant Organisms: None Reported Past Surgical History: Hysterectomy Past Anesthesia/Blood Transfusion Reactions: No Reported Reaction, Postoperative Nausea & Vomiting (PONV) Past Psychological History: No Psychological Hx Reported Past Drug Use History: None Reported Medications and Allergies Home Medications Medication Instructions Recorded Confirmed Type amLODIPine BESYLATE 5 mg PO DAILY 07/18/20 11/19/24 History lisinopriL [Zestril] 20 mg PO BID 07/18/20 11/19/24 History Atorvastatin Calcium [Lipitor] 10 mg PO HS 01/31/21 11/19/24 History Escitalopram Oxalate [Lexapro] 10 mg PO DAILY 01/31/21 11/19/24 History Allergies Allergy/AdvReac Type Severity Reaction Status Date / Time latex Allergy Anaphylaxis Verified 11/19/24 13:47 Physical Exam Vitals: Vital Signs Temp Pulse Resp BP Pulse Ox 11/19/24 17:26 97.9 F 88 18 156/72 92 L 11/19/24 14:14 79 18 123/70 93 L 11/19/24 10:49 97.6 F 87 18 162/79 98 11/19/24 09:34 97.9 F 96 18 191/92 96 Intake and Output 11/19/24 11/19/24 11/19/24 06:59 14:59 22:59 Other: Weight 102.058 kg GENERAL: Patient is well-developed and well-nourished. Patient is nontoxic and well-hydrated and is in mild distress. ENT: Neck is soft and supple. No significant lymphadenopathy is noted. Oropharynx is clear. Moist mucous membranes. Neck has full range of motion without eliciting any pain. EYES: The sclera were anicteric and conjunctiva were pink and moist. Extraocular movements were intact and pupils were equal round and reactive to light. Eyelids were unremarkable. PULMONARY: Unlabored respirations. Good breath sounds bilaterally. No audible rales rhonchi or wheezing was noted. CARDIOVASCULAR: There is a regular rate and rhythm without any murmurs gallops or rubs. ABDOMEN: Patient has point tenderness on the left side SKIN: Skin is clear with no lesions or rashes and otherwise unremarkable. NEUROLOGIC: Patient is alert and oriented x3. Cranial nerves II through XII are grossly intact. Motor and sensory are also intact. Normal speech, volume and content. Symmetrical smile. MUSCULOSKELETAL: Normal extremities with adequate strength and full range of motion. Results CBC & Chem 7: 11/19/24 09:54 11/19/24 09:54 Labs: Abnormal Lab Results - Last 24 Hours (Table) 11/19/24 11/19/24 11/19/24 Range/Units 09:54 09:54 09:54 WBC 18.73 H (4.50-10.00) 10*3/uL Immature Gran # 0.09 H (0.00-0.04) 10*3/uL Neutrophils # 16.91 H (1.80-7.70) 10*3/uL Lymphocytes # 0.82 L (0.90-5.00) 10*3/uL Eosinophils # 0.01 L (0.04-0.35) 10*3/uL Carbon Dioxide 19 L (22-30) mmol/L BUN 19 H (7-17) mg/dL Glucose 219 H (74-99) mg/dL Plasma Lactic Acid Shashi 3.7 H* (0.7-2.0) mmol/L Urine Glucose (UA) (Negative) Urine Blood (Negative) Urine RBC (0-5) /hpf Urine Mucus (None) /hpf 11/19/24 11/19/24 Range/Units 13:06 16:39 WBC (4.50-10.00) 10*3/uL Immature Gran # (0.00-0.04) 10*3/uL Neutrophils # (1.80-7.70) 10*3/uL Lymphocytes # (0.90-5.00) 10*3/uL Eosinophils # (0.04-0.35) 10*3/uL Carbon Dioxide (22-30) mmol/L BUN (7-17) mg/dL Glucose (74-99) mg/dL Plasma Lactic Acid Shashi 2.6 H* (0.7-2.0) mmol/L Urine Glucose (UA) Trace H (Negative) Urine Blood Small H (Negative) Urine RBC 13 H (0-5) /hpf Urine Mucus Rare H (None) /hpf Assessment and Plan Assessment: 1. Acute pyelonephritis/sepsis -Will place patient on IV Rocephin 2 g daily; blood cultures and urine culture has been obtained - Will consult ID for further evaluation and recommendation 2. Left hydronephrosis with possible obstructing calculus - Patient has been placed on IV fluid; will use IV Dilaudid for pain control - Consult urology 3. Abdominal mass; CT of the abdomen reveals large lobular masslike area measuring 11 x 5.7 x 9.2 cm; adenopathy could be in the differential; abscess cannot be ruled out; repeat CT with oral contrast is recommended - Will consult general surgery for further recommendations 4. Hypertension; Norvasc 5 mg daily; lisinopril 20 mg twice daily 5. Hyperlipidemia; Lipitor 10 mg p.o. nightly 6. Depression/anxiety; Lexapro 10 mg daily DVT prophylaxis; SCDs CODE STATUS; full code
[2024-11-20] MEDS: lisinopriL 20 MG TAB PO SCH (07:59)
[2024-11-20] MEDS: ESCITALOPRAM 10 MG TAB PO SCH (07:59)
[2024-11-20] MEDS: amLODIPine 5 MG TAB PO SCH (07:59)
[2024-11-20 09:33] LABS: Carbon Dioxide 24.6 mmol/L (21.6-31.8); Chloride 110 mmol/L (96-109); Glucose 118 mg/dL (70-110); Potassium 4.4 mmol/L (3.5-5.5); Sodium 145 mmol/L (135-145)
--- NOTE | 2024-11-20 09:49 | P.GSCN ---
History of Present Illness Consult date: 11/20/24 History of present illness: 73 yo female who presented to the er with diarrhea and some abdominal bloating. SHe also appparently had some mild left flank pain. SHe had a ct scan in the er showing some mild left sided hydro with a possible mid ureteral stone. HEr urine showed some rbc's but was not infected. SHe also was noted to have a right sided abdominal mass. The only previous surgery is a hysterectomy. She feels much better today. There is no history of stones. There is no family history of stones. There is no major back or bowel problems other than as mentioned above. Her vital signs are stable. Review of Systems All systems: negative - Constitutional Denies fever, Denies weight loss - EENT Eyes: denies blurred vision Ears, nose, mouth and throat: Denies dysphagia - Cardiovascular Denies chest pain, Denies shortness of breath - Respiratory Denies cough, Denies 7 - Gastrointestinal Reports as per HPI - Genitourinary Genitourinary: Denies dysuria, Denies hematuria - Integumentary Denies rash, Denies unusual bruising - Neurological Denies headaches, Denies syncope - Hematologic/Lymphatic Denies easy bleeding, Denies easy bruising Past Medical History Past Medical History: Hyperlipidemia, Hypertension Additional Past Medical History / Comment(s): hx colon polyps History of Any Multi-Drug Resistant Organisms: None Reported Past Surgical History: Hysterectomy Additional Past Surgical History / Comment(s): Laminectomy and discectomy to back Past Anesthesia/Blood Transfusion Reactions: No Reported Reaction, Postoperative Nausea & Vomiting (PONV) Past Psychological History: No Psychological Hx Reported Past Drug Use History: None Reported Medications and Allergies Home Medications Medication Instructions Recorded Confirmed Type amLODIPine BESYLATE 5 mg PO DAILY 07/18/20 11/19/24 History lisinopriL [Zestril] 20 mg PO BID 07/18/20 11/19/24 History Atorvastatin Calcium [Lipitor] 10 mg PO HS 01/31/21 11/19/24 History Escitalopram Oxalate [Lexapro] 10 mg PO DAILY 01/31/21 11/19/24 History Allergies Allergy/AdvReac Type Severity Reaction Status Date / Time latex Allergy Anaphylaxis Verified 11/19/24 13:47 Surgical - Exam Vital Signs Temp Pulse Resp BP Pulse Ox 97.9 F 96 18 191/92 96 11/19/24 09:34 11/19/24 09:34 11/19/24 09:34 11/19/24 09:34 11/19/24 09:34 - General well developed, well nourished, no distress - Eyes normal ocular movement, no icteric - ENT no hearing loss, no congestion - Neck no masses, trachea midline - Respiratory normal respiratory effort, clear to auscultation - Abdomen Abdomen: soft, non tender, no guarding, no rigid, no rebound - Integumentary no rash, no abnormal pigmentation - Neurologic no disoriented, no combative - Psychiatric oriented to time, oriented to person, oriented to place, speech is normal, memory intact Results - Labs 11/19/24 09:54 11/20/24 04:07 Abnormal Lab Results - Last 24 Hours (Table) 11/19/24 11/19/24 11/19/24 Range/Units 09:54 09:54 09:54 WBC 18.73 H (4.50-10.00) 10*3/uL Immature Gran # 0.09 H (0.00-0.04) 10*3/uL Neutrophils # 16.91 H (1.80-7.70) 10*3/uL Lymphocytes # 0.82 L (0.90-5.00) 10*3/uL Eosinophils # 0.01 L (0.04-0.35) 10*3/uL Carbon Dioxide 19 L (22-30) mmol/L BUN 19 H (7-17) mg/dL Glucose 219 H (74-99) mg/dL Plasma Lactic Acid Shashi 3.7 H* (0.7-2.0) mmol/L Urine Glucose (UA) (Negative) Urine Blood (Negative) Urine RBC (0-5) /hpf Urine Mucus (None) /hpf 11/19/24 11/19/24 Range/Units 13:06 16:39 WBC (4.50-10.00) 10*3/uL Immature Gran # (0.00-0.04) 10*3/uL Neutrophils # (1.80-7.70) 10*3/uL Lymphocytes # (0.90-5.00) 10*3/uL Eosinophils # (0.04-0.35) 10*3/uL Carbon Dioxide (22-30) mmol/L BUN (7-17) mg/dL Glucose (74-99) mg/dL Plasma Lactic Acid Shashi 2.6 H* (0.7-2.0) mmol/L Urine Glucose (UA) Trace H (Negative) Urine Blood Small H (Negative) Urine RBC 13 H (0-5) /hpf Urine Mucus Rare H (None) /hpf Diabetes panel 11/19/24 Range/Units 09:54 Sodium 139 (137-145) mmol/L Potassium 3.9 (3.5-5.1) mmol/L Chloride 107 (98-107) mmol/L Carbon Dioxide 19 L (22-30) mmol/L BUN 19 H (7-17) mg/dL Creatinine 0.94 (0.52-1.04) mg/dL Glucose 219 H (74-99) mg/dL Calcium 10.1 (8.4-10.2) mg/dL AST 20 (14-36) U/L ALT 19 (4-34) U/L Alkaline Phosphatase 113 (38-126) U/L Total Protein 8.0 (6.3-8.2) g/dL Albumin 4.7 (3.5-5.0) g/dL Calcium panel 11/19/24 Range/Units 09:54 Calcium 10.1 (8.4-10.2) mg/dL Albumin 4.7 (3.5-5.0) g/dL Pituitary panel 11/19/24 Range/Units 09:54 Sodium 139 (137-145) mmol/L Potassium 3.9 (3.5-5.1) mmol/L Chloride 107 (98-107) mmol/L Carbon Dioxide 19 L (22-30) mmol/L BUN 19 H (7-17) mg/dL Creatinine 0.94 (0.52-1.04) mg/dL Glucose 219 H (74-99) mg/dL Calcium 10.1 (8.4-10.2) mg/dL Adrenal panel 11/19/24 Range/Units 09:54 Sodium 139 (137-145) mmol/L Potassium 3.9 (3.5-5.1) mmol/L Chloride 107 (98-107) mmol/L Carbon Dioxide 19 L (22-30) mmol/L BUN 19 H (7-17) mg/dL Creatinine 0.94 (0.52-1.04) mg/dL Glucose 219 H (74-99) mg/dL Calcium 10.1 (8.4-10.2) mg/dL Total Bilirubin 0.6 (0.2-1.3) mg/dL AST 20 (14-36) U/L ALT 19 (4-34) U/L Alkaline Phosphatase 113 (38-126) U/L Total Protein 8.0 (6.3-8.2) g/dL Albumin 4.7 (3.5-5.0) g/dL - Imaging CT scan - abdomen: report reviewed, image reviewed CT scan - pelvis: report reviewed, image reviewed Assessment and Plan Assessment: Impression: Abdominal pain and left flank pain possibly due to a left ureteral stone. Abnormal CT scan in mid abdomen General Surgery will evaluate. No evidence of urine infection. Recommendations: From a urologic standpoint if there is a stone it is small enough that it should pass. Since she is asymptomatic she can go home from my standpoint and follow-up in the office. Obviously discharge will be pending the general surgical evaluation for the abnormal CT scan. Time with Patient: Greater than 30
[2024-11-20 10:04] LABS: Basophils # (A) 0.05 X 10*3/uL (0.00-0.10); Basophils % (A) 0.3 %; Eosinophils # (A) 0.03 X 10*3/uL (0.04-0.35); Eosinophils % (A) 0.2 %; HCT 39.8 % (37.2-46.3); HGB 12.2 g/dL (12.0-15.0); Lymphocytes # (A) 1.89 X 10*3/uL (0.90-5.00); Lymphocytes % (A) 12.5 %; MCH 30.8 pg (27.0-32.0); MCHC 30.7 g/dL (32.0-37.0); MCV 100.5 FL (80.0-97.0); Mean Platelet Volume 10.8 FL (9.5-12.2); Monocytes # (A) 1.23 X 10*3/uL (0.20-1.00); Monocytes % (A) 8.1 %; NRBC Per 100 WBC 0 X 10*3/uL (0.00-0.01); Neutrophils # (A) 11.91 X 10*3/uL (1.80-7.70); Neutrophils % (A) 78.6 %; Platelet Count 399 X 10*3/uL (140-440); RBC 3.96 X 10*6/uL (4.10-5.20); RDW 13.4 % (11.5-14.5); WBC 15.16 X 10*3/uL (4.50-10.00)
--- NOTE | 2024-11-20 10:40 | P.GSCN ---
History of Present Illness Consult date: 11/20/24 Reason for Consult: Abdominal pain History of present illness: 73-year-old female presents with acute onset left-sided abdominal pain. Patient says this started at 3 AM yesterday morning. Was associate with nausea and subsequent vomiting. Keavy a little bit bloated with that. Feels better today after analgesics overnight. Some microscopic hematuria was noted. CAT scan performed and mild left-sided hydronephrosis with possible left ureterolithiasis was described. Urology has seen the patient and thinks there may be a 4 to 5 mm stone in the ureter and is recommending observation for that. The patient on the CAT scan unfortunately also was found to have a right lower quadrant retroperitoneal mass with pockets of free fluid/ascites in the abdomen along with possible changes of the omentum suspicious for omental caking. Patient without history of known malignancy. No real change in weight or appetite recently. She has she is always a little bit bloated. No bowel function abnormalities. Last colonoscopy 4.5 years ago and showed no abnormalities. Previous hysterectomy for fibroids. Family history of pancreatic cancer in her brother and possible liver malignancy and another brother. No genetic testing that she is aware of. Her white blood cell count was elevated on arrival at 18 improved at 15 today. Low-grade temp of 99.8. Appears comfortable. Review of Systems The patient denies any acute changes in vision or hearing, no dysphagia or odynophagia, no chest pain or shortness of breath, no dysuria or hematuria, no headache, no runny nose, no rectal bleeding or melena, no unexplained weight loss Past Medical History Past Medical History: Hyperlipidemia, Hypertension Additional Past Medical History / Comment(s): hx colon polyps History of Any Multi-Drug Resistant Organisms: None Reported Past Surgical History: Hysterectomy Additional Past Surgical History / Comment(s): Laminectomy and discectomy to back Past Anesthesia/Blood Transfusion Reactions: No Reported Reaction, Postoperative Nausea & Vomiting (PONV) Past Psychological History: No Psychological Hx Reported Past Drug Use History: None Reported Medications and Allergies Home Medications Medication Instructions Recorded Confirmed Type amLODIPine BESYLATE 5 mg PO DAILY 07/18/20 11/19/24 History lisinopriL [Zestril] 20 mg PO BID 07/18/20 11/19/24 History Atorvastatin Calcium [Lipitor] 10 mg PO HS 01/31/21 11/19/24 History Escitalopram Oxalate [Lexapro] 10 mg PO DAILY 01/31/21 11/19/24 History Allergies Allergy/AdvReac Type Severity Reaction Status Date / Time latex Allergy Anaphylaxis Verified 11/19/24 13:47 Surgical - Exam Vital Signs Temp Pulse Resp BP Pulse Ox 97.9 F 96 18 191/92 96 11/19/24 09:34 11/19/24 09:34 11/19/24 09:34 11/19/24 09:34 11/19/24 09:34 Physical exam: General: Well-developed, well-nourished HEENT: Normocephalic, sclerae nonicteric Abdomen: Mild diffuse tenderness, no discrete masses palpable, mild distention Extremities: No edema Neuro: Alert and oriented Results - Labs 11/20/24 04:07 11/20/24 04:07 Abnormal Lab Results - Last 24 Hours (Table) 11/19/24 11/19/24 11/19/24 Range/Units 09:54 13:06 16:39 WBC (4.50-10.00) X 10*3/uL RBC (4.10-5.20) X 10*6/uL MCV (80.0-97.0) FL MCHC (32.0-37.0) g/dL Immature Gran # (0.00-0.04) X 10*3/uL Neutrophils # (1.80-7.70) X 10*3/uL Monocytes # (0.20-1.00) X 10*3/uL Eosinophils # (0.04-0.35) X 10*3/uL Chloride (96-109) mmol/L Glucose (70-110) mg/dL Plasma Lactic Acid Shashi 3.7 H* 2.6 H* (0.7-2.0) mmol/L Urine Glucose (UA) Trace H (Negative) Urine Blood Small H (Negative) Urine RBC 13 H (0-5) /hpf Urine Mucus Rare H (None) /hpf 11/20/24 11/20/24 Range/Units 04:07 04:07 WBC 15.16 H (4.50-10.00) X 10*3/uL RBC 3.96 L (4.10-5.20) X 10*6/uL MCV 100.5 H (80.0-97.0) FL MCHC 30.7 L (32.0-37.0) g/dL Immature Gran # 0.05 H (0.00-0.04) X 10*3/uL Neutrophils # 11.91 H (1.80-7.70) X 10*3/uL Monocytes # 1.23 H (0.20-1.00) X 10*3/uL Eosinophils # 0.03 L (0.04-0.35) X 10*3/uL Chloride 110 H (96-109) mmol/L Glucose 118 H (70-110) mg/dL Plasma Lactic Acid Shashi (0.7-2.0) mmol/L Urine Glucose (UA) (Negative) Urine Blood (Negative) Urine RBC (0-5) /hpf Urine Mucus (None) /hpf Diabetes panel 11/20/24 Range/Units 04:07 Sodium 145 (135-145) mmol/L Potassium 4.4 (3.5-5.5) mmol/L Chloride 110 H (96-109) mmol/L Carbon Dioxide 24.6 (21.6-31.8) mmol/L BUN 18.0 (9.0-27.0) mg/dL Creatinine 1.0 (0.6-1.5) mg/dL Glucose 118 H (70-110) mg/dL Calcium 9.0 (8.7-10.3) mg/dL Calcium panel 11/20/24 Range/Units 04:07 Calcium 9.0 (8.7-10.3) mg/dL Pituitary panel 11/20/24 Range/Units 04:07 Sodium 145 (135-145) mmol/L Potassium 4.4 (3.5-5.5) mmol/L Chloride 110 H (96-109) mmol/L Carbon Dioxide 24.6 (21.6-31.8) mmol/L BUN 18.0 (9.0-27.0) mg/dL Creatinine 1.0 (0.6-1.5) mg/dL Glucose 118 H (70-110) mg/dL Calcium 9.0 (8.7-10.3) mg/dL Adrenal panel 11/20/24 Range/Units 04:07 Sodium 145 (135-145) mmol/L Potassium 4.4 (3.5-5.5) mmol/L Chloride 110 H (96-109) mmol/L Carbon Dioxide 24.6 (21.6-31.8) mmol/L BUN 18.0 (9.0-27.0) mg/dL Creatinine 1.0 (0.6-1.5) mg/dL Glucose 118 H (70-110) mg/dL Calcium 9.0 (8.7-10.3) mg/dL Assessment and Plan (1) Abdominal pain Narrative/Plan: 73-year-old female with abdominal pain. Agree that pain may be on the basis of ureterolithiasis at this time. Possible incidental findings of other abdominal pathology described. Will obtain tumor markers and consult to oncology. Recommend percutaneous biopsy of the right lower quadrant mass. This can be performed as an outpatient as I am not sure whether we have appropriate interventional radiology resources here at this time. Current Visit: Yes Status: Acute Code(s): R10.9 - UNSPECIFIED ABDOMINAL PAIN SNOMED Code(s): 58184742
[2024-11-20 13:38] LABS: Cancer Antigen 19-9 6.1 U/mL (0.0-34.9); Carcinoembryonic Antigen <2.0 ng/mL (0.0-4.9)
--- NOTE | 2024-11-20 15:30 | P.PN ---
Subjective Progress Note Date: 11/20/24 73-year-old female, history of hypertension, hyperlipidemia, who presents to the emergency department complaining of waking up this morning at 3 AM having diarrhea. Patient states shortly after that she started having nausea and vomiting. Patient states her stomach continues to feel bloated and she has some pain in the left side. Patient denies any fever chills or cough. Patient denies any dysuria hematuria urinary frequency. Patient denies any back pain. Patient denies any chest pain or difficulty breathing Blood work completed in ED reveals a WBC of 18.7, hemoglobin of 14.2 and platelet count of 438, sodium 139, potassium 3.9, BUNs/creatinine of 19/0.94 and blood glucose of 219, lactic acid elevated at 3.7 -CT of the abdomen pelvis shows a mass 11 x 9 x 6 there is some free fluid in the peritoneum as well; a CT with oral contrast is recommended; mild prominence of the renal collecting system. Mild left hydronephrosis and hydroureter is present, and obstructing punctate to 0.5 cm calcification within the mid right ureter; acute pyelonephritis of left kidney cannot be excluded Objective - Vital Signs Vital signs: Vital Signs Temp 98.3 F 11/20/24 07:25 Pulse 82 11/20/24 07:25 Resp 15 11/20/24 07:25 BP 168/79 11/20/24 07:25 Pulse Ox 95 11/20/24 07:25 FiO2 Intake & Output 11/19/24 11/20/24 11/20/24 18:59 06:59 18:59 Intake Total 240 Balance 240 Weight 102.058 kg Intake: Oral 240 Other: Voiding Method Toilet Toilet # Voids 3 - Exam GENERAL: Patient is well-developed and well-nourished. Patient is nontoxic and well-hydrated and is in mild distress. ENT: Neck is soft and supple. No significant lymphadenopathy is noted. Oropharynx is clear. Moist mucous membranes. Neck has full range of motion without eliciting any pain. EYES: The sclera were anicteric and conjunctiva were pink and moist. Extraocular movements were intact and pupils were equal round and reactive to light. Eyelids were unremarkable. PULMONARY: Unlabored respirations. Good breath sounds bilaterally. No audible rales rhonchi or wheezing was noted. CARDIOVASCULAR: There is a regular rate and rhythm without any murmurs gallops or rubs. ABDOMEN: Patient has point tenderness on the left side SKIN: Skin is clear with no lesions or rashes and otherwise unremarkable. NEUROLOGIC: Patient is alert and oriented x3. Cranial nerves II through XII are grossly intact. Motor and sensory are also intact. Normal speech, volume and content. Symmetrical smile. MUSCULOSKELETAL: Normal extremities with adequate strength and full range of motion. - Labs CBC & Chem 7: 11/20/24 04:07 11/20/24 04:07 Labs: Abnormal Lab Results - Last 24 Hours (Table) 11/19/24 11/19/24 11/19/24 Range/Units 09:54 09:54 09:54 WBC 18.73 H (4.50-10.00) 10*3/uL Immature Gran # 0.09 H (0.00-0.04) 10*3/uL Neutrophils # 16.91 H (1.80-7.70) 10*3/uL Lymphocytes # 0.82 L (0.90-5.00) 10*3/uL Eosinophils # 0.01 L (0.04-0.35) 10*3/uL Chloride (96-109) mmol/L Carbon Dioxide 19 L (22-30) mmol/L BUN 19 H (7-17) mg/dL Glucose 219 H (74-99) mg/dL Plasma Lactic Acid Shashi 3.7 H* (0.7-2.0) mmol/L Urine Glucose (UA) (Negative) Urine Blood (Negative) Urine RBC (0-5) /hpf Urine Mucus (None) /hpf 11/19/24 11/19/24 11/20/24 Range/Units 13:06 16:39 04:07 WBC (4.50-10.00) 10*3/uL Immature Gran # (0.00-0.04) 10*3/uL Neutrophils # (1.80-7.70) 10*3/uL Lymphocytes # (0.90-5.00) 10*3/uL Eosinophils # (0.04-0.35) 10*3/uL Chloride 110 H (96-109) mmol/L Carbon Dioxide (22-30) mmol/L BUN (7-17) mg/dL Glucose 118 H (74-99) mg/dL Plasma Lactic Acid Shashi 2.6 H* (0.7-2.0) mmol/L Urine Glucose (UA) Trace H (Negative) Urine Blood Small H (Negative) Urine RBC 13 H (0-5) /hpf Urine Mucus Rare H (None) /hpf Assessment and Plan Assessment: 1. Acute pyelonephritis/sepsis -Will place patient on IV Rocephin 2 g daily; blood cultures and urine culture has been obtained - Will consult ID for further evaluation and recommendation 2. Left hydronephrosis with possible obstructing calculus - Patient has been placed on IV fluid; will use IV Dilaudid for pain control - Consult urology 3. Abdominal mass; CT of the abdomen reveals large lobular masslike area measuring 11 x 5.7 x 9.2 cm; adenopathy could be in the differential; abscess cannot be ruled out; repeat CT with oral contrast is recommended - Will consult general surgery for further recommendations 4. Hypertension; Norvasc 5 mg daily; lisinopril 20 mg twice daily 5. Hyperlipidemia; Lipitor 10 mg p.o. nightly 6. Depression/anxiety; Lexapro 10 mg daily DVT prophylaxis; SCDs CODE STATUS; full code
--- NOTE | 2024-11-20 18:04 | P.CONS ---
History of Present Illness - Reason for Consult Consult date: 11/20/24 abdominal mass Requesting physician: Cortez Neal - Chief Complaint abd pain, n/v/d - History of Present Illness Patient is a 73-year-old female with a significant history of hyperlipidemia and hypertension and surgical history of hysterectomy. Consult was placed due to abdominal mass noted on CT scan. Patient reports overnight she began having left lower quadrant pain with associated nausea vomiting and diarrhea. She states she had 1 episode of vomiting and 1 loose stool. Denies hematochezia, melena and hematemesis. Denies fever and chills. Denies unintentional weight loss and night sweats. Denies personal history of cancer. Her brothers had a history of pancreatic and liver cancer. At today's visit report abd pain and n/v/d have resolved. Upon admit CT abdomen pelvis showing large lobular masslike area measuring 11.0 x 5.7 x 9.2 cm. Free fluid within the abdomen left paracolic gutter and pelvis. Mild prominence of the renal collecting system with mild left hydronephrosis and hydro ureter. Obstructing punctate 0.5 cm calcification may be present within the right mid ureter. Possible pyelonephritis within left kidney. Nonobstructing inferior pole left renal stone. Upon admit leukocytosis was noted with WBC 18.7, ANC 16.9. Hemoglobin 14.2, platelets 430,000. Lactic acid elevated at 3.7. Low grade temp of 99.8. Creatinine 0.94, GFR 61. LFTs, bilirubin, amylase and lipase WNL. UA showing hematuria, not suspicious for UTI. Urology, ID and general surgery have been consulted. Review of Systems 10 point ROS is negative except as stated in the HPI Past Medical History Past Medical History: Hyperlipidemia, Hypertension Additional Past Medical History / Comment(s): hx colon polyps History of Any Multi-Drug Resistant Organisms: None Reported Past Surgical History: Hysterectomy Additional Past Surgical History / Comment(s): Laminectomy and discectomy to back Past Anesthesia/Blood Transfusion Reactions: No Reported Reaction, Postoperative Nausea & Vomiting (PONV) Past Psychological History: No Psychological Hx Reported Past Drug Use History: None Reported Medications and Allergies Home Medications Medication Instructions Recorded Confirmed Type amLODIPine BESYLATE 5 mg PO DAILY 07/18/20 11/19/24 History lisinopriL [Zestril] 20 mg PO BID 07/18/20 11/19/24 History Atorvastatin Calcium [Lipitor] 10 mg PO HS 01/31/21 11/19/24 History Escitalopram Oxalate [Lexapro] 10 mg PO DAILY 01/31/21 11/19/24 History Allergies Allergy/AdvReac Type Severity Reaction Status Date / Time latex Allergy Anaphylaxis Verified 11/19/24 13:47 Physical Exam Vitals: Vital Signs Temp Pulse Pulse Resp BP BP Pulse Ox 11/20/24 07:25 98.3 F 82 15 168/79 95 11/20/24 00:05 98.4 F 72 18 103/58 93 L 11/19/24 19:08 99.8 F H 76 16 127/50 92 L 11/19/24 17:26 97.9 F 88 18 156/72 92 L 11/19/24 14:14 79 18 123/70 93 L Intake and Output 11/19/24 11/20/24 11/20/24 22:59 06:59 14:59 Intake Total 240 Balance 240 Intake: Oral 240 Other: Voiding Method Toilet Toilet # Voids 3 - Constitutional General appearance: average body habitus, no acute distress - EENT Eyes: anicteric sclerae, EOMI ENT: hearing grossly normal - Respiratory Respiratory: bilateral: CTA - Cardiovascular Rhythm: regular - Gastrointestinal firmness to epigastrium, no palpable mass upon palpation General gastrointestinal: no distended, no tenderness - Integumentary Integumentary: no cyanotic, no jaundiced - Neurologic Neurologic: CNII-XII intact - Musculoskeletal Musculoskeletal: strength equal bilaterally - Psychiatric Psychiatric: A&O x's 3 Results CBC & Chem 7: 11/20/24 04:07 11/20/24 04:07 Labs: Abnormal Lab Results - Last 24 Hours (Table) 11/19/24 11/19/24 11/20/24 Range/Units 13:06 16:39 04:07 WBC 15.16 H (4.50-10.00) X 10*3/uL RBC 3.96 L (4.10-5.20) X 10*6/uL MCV 100.5 H (80.0-97.0) FL MCHC 30.7 L (32.0-37.0) g/dL Immature Gran # 0.05 H (0.00-0.04) X 10*3/uL Neutrophils # 11.91 H (1.80-7.70) X 10*3/uL Monocytes # 1.23 H (0.20-1.00) X 10*3/uL Eosinophils # 0.03 L (0.04-0.35) X 10*3/uL Chloride (96-109) mmol/L Glucose (70-110) mg/dL Plasma Lactic Acid Shashi 2.6 H* (0.7-2.0) mmol/L Urine Glucose (UA) Trace H (Negative) Urine Blood Small H (Negative) Urine RBC 13 H (0-5) /hpf Urine Mucus Rare H (None) /hpf 11/20/24 Range/Units 04:07 WBC (4.50-10.00) X 10*3/uL RBC (4.10-5.20) X 10*6/uL MCV (80.0-97.0) FL MCHC (32.0-37.0) g/dL Immature Gran # (0.00-0.04) X 10*3/uL Neutrophils # (1.80-7.70) X 10*3/uL Monocytes # (0.20-1.00) X 10*3/uL Eosinophils # (0.04-0.35) X 10*3/uL Chloride 110 H (96-109) mmol/L Glucose 118 H (70-110) mg/dL Plasma Lactic Acid Shashi (0.7-2.0) mmol/L Urine Glucose (UA) (Negative) Urine Blood (Negative) Urine RBC (0-5) /hpf Urine Mucus (None) /hpf CT scan - abdomen: report reviewed CT scan - pelvis: report reviewed Assessment and Plan (1) Leukocytosis Current Visit: Yes Status: Acute Priority: Medium Code(s): D72.829 - ELEVATED WHITE BLOOD CELL COUNT, UNSPECIFIED SNOMED Code(s): 081455187 (2) Abdominal pain Current Visit: Yes Status: Acute Priority: High Code(s): R10.9 - UNSPECIFIED ABDOMINAL PAIN SNOMED Code(s): 10851551 (3) Intraabdominal mass Current Visit: Yes Status: Acute Priority: High Code(s): R19.00 - INTRA- ABD AND PELVIC SWELLING, MASS AND LUMP, UNSP SITE SNOMED Code(s): 736514990 Plan: Abdominal mass: Patient reports overnight she began having left lower quadrant pain with associated nausea vomiting and diarrhea. She states she had 1 episode of vomiting and 1 loose stool. Denies hematochezia, melena and hematemesis. Denies fever and chills. Denies unintentional weight loss and night sweats. Denies personal history of cancer. Her brothers had a history of pancreatic and liver cancer. -Upon admit CT abdomen pelvis showing large lobular masslike area measuring 11.0 x 5.7 x 9.2 cm. Free fluid within the abdomen left paracolic gutter and pelvis. Mild prominence of the renal collecting system with mild left hydronephrosis and hydro ureter. Obstructing punctate 0.5 cm calcification may be present within the right mid ureter. Possible pyelonephritis within left kidney -CBC showing leukocytosis with WBC 18.7, ANC 16.9. Hemoglobin 14.2, platelets 430,000. Lactic acid elevated at 3.7. LFTs, bilirubin, amylase and lipase WNL. UA showing hematuria. Tmax 99.8 -Will obtain blood cultures, urine culture and c-diff testing -Tumor markers have been obtained -Consult to IR placed for biopsy of abdominal mass -Urology, ID and general surgery following Discussed findings and concerns for infectious process vs malignancy. She was agreeable to plan of care and for further workup Case briefly discussed with admitting team
[2024-11-20] MEDS: ATORVASTATIN 10 MG TAB PO SCH (20:47)
--- NOTE | 2024-11-20 23:04 | P.CONS ---
History of Present Illness - Reason for Consult Consult date: 11/20/24 Sepsis Requesting physician: Mi Joseph - Chief Complaint Left-sided abdominal pain x 1 day - History of Present Illness Patient is a 73-year-old female past medical history of negative for hypertension and hyperlipidemia presenting to the hospital for evaluation of left-sided abdominal pain that woke her up at 3 in the morning patient did describe the pain to be sharp almost 10 of 10 in severity with associated nausea vomiting and did have some diarrhea patient denies high-grade fever or any chills no URI symptoms and did not have significant urinary symptoms either on presentation to the hospital the patient was afebrile she did have a low-grade fever of 99.8 F last night patient has been afebrile since the patient was not tachycardic hypotensive or hypoxic she did have a white count of 18.73 which is down to 15.16 creatinine 0.94 liver enzymes are normal urine has been showing mostly hematuria patient did have a abdominal pelvis CT we did shows large lobular masslike area concerning for possible omental caking and neoplasm mild prominence of the renal collecting system mild left hydronephrosis and hydroureter consider pyelonephritis of the left kidney patient has been admitted to the hospital infectious he was consulted concerning for possible sepsis Review of Systems Positive point and negatives has been mentioned in the HPI, complete review of systems was performed and all other systems are negative Past Medical History Past Medical History: Hyperlipidemia, Hypertension Additional Past Medical History / Comment(s): hx colon polyps History of Any Multi-Drug Resistant Organisms: None Reported Past Surgical History: Hysterectomy Additional Past Surgical History / Comment(s): Laminectomy and discectomy to back Past Anesthesia/Blood Transfusion Reactions: No Reported Reaction, Postoperative Nausea & Vomiting (PONV) Past Psychological History: No Psychological Hx Reported Past Drug Use History: None Reported Medications and Allergies Home Medications Medication Instructions Recorded Confirmed Type amLODIPine BESYLATE 5 mg PO DAILY 07/18/20 11/19/24 History lisinopriL [Zestril] 20 mg PO BID 07/18/20 11/19/24 History Atorvastatin Calcium [Lipitor] 10 mg PO HS 01/31/21 11/19/24 History Escitalopram Oxalate [Lexapro] 10 mg PO DAILY 01/31/21 11/19/24 History Allergies Allergy/AdvReac Type Severity Reaction Status Date / Time latex Allergy Anaphylaxis Verified 11/19/24 13:47 Physical Exam Vitals: Vital Signs Temp Pulse Pulse Resp BP BP Pulse Ox 11/20/24 07:25 98.3 F 82 15 168/79 95 11/20/24 00:05 98.4 F 72 18 103/58 93 L 11/19/24 19:08 99.8 F H 76 16 127/50 92 L 11/19/24 17:26 97.9 F 88 18 156/72 92 L 11/19/24 14:14 79 18 123/70 93 L Intake and Output 11/19/24 11/20/24 11/20/24 22:59 06:59 14:59 Intake Total 240 Balance 240 Intake: Oral 240 Other: Voiding Method Toilet Toilet # Voids 3 GENERAL DESCRIPTION: Elderly female lying in bed, no distress. No tachypnea or accessory muscle of respiration use. HEENT: Shows Pallor , no scleral icterus. Oral mucous membrane is dry. No pharyngeal erythema or thrush NECK: Trachea central, no thyromegaly. LUNGS: Unlabored breathing. Clear to auscultation anteriorly. No wheeze or crackle. HEART: S1, S2, regular rate and rhythm. No loud murmur ABDOMEN: Soft, no tenderness , guarding or rigidity, no organomegaly EXTREMITIES: No edema of feet. SKIN: No rash, no masses palpable. NEUROLOGICAL: The patient is awake, alert, oriented x3, mood and affect normal. Results CBC & Chem 7: 11/20/24 04:07 11/20/24 04:07 Labs: Abnormal Lab Results - Last 24 Hours (Table) 11/19/24 11/19/24 11/20/24 Range/Units 13:06 16:39 04:07 WBC 15.16 H (4.50-10.00) X 10*3/uL RBC 3.96 L (4.10-5.20) X 10*6/uL MCV 100.5 H (80.0-97.0) FL MCHC 30.7 L (32.0-37.0) g/dL Immature Gran # 0.05 H (0.00-0.04) X 10*3/uL Neutrophils # 11.91 H (1.80-7.70) X 10*3/uL Monocytes # 1.23 H (0.20-1.00) X 10*3/uL Eosinophils # 0.03 L (0.04-0.35) X 10*3/uL Chloride (96-109) mmol/L Glucose (70-110) mg/dL Plasma Lactic Acid Shashi 2.6 H* (0.7-2.0) mmol/L Urine Glucose (UA) Trace H (Negative) Urine Blood Small H (Negative) Urine RBC 13 H (0-5) /hpf Urine Mucus Rare H (None) /hpf 11/20/24 Range/Units 04:07 WBC (4.50-10.00) X 10*3/uL RBC (4.10-5.20) X 10*6/uL MCV (80.0-97.0) FL MCHC (32.0-37.0) g/dL Immature Gran # (0.00-0.04) X 10*3/uL Neutrophils # (1.80-7.70) X 10*3/uL Monocytes # (0.20-1.00) X 10*3/uL Eosinophils # (0.04-0.35) X 10*3/uL Chloride 110 H (96-109) mmol/L Glucose 118 H (70-110) mg/dL Plasma Lactic Acid Shashi (0.7-2.0) mmol/L Urine Glucose (UA) (Negative) Urine Blood (Negative) Urine RBC (0-5) /hpf Urine Mucus (None) /hpf Assessment and Plan (1) Abdominal pain Current Visit: Yes Status: Acute Priority: High Code(s): R10.9 - UNSPECIFIED ABDOMINAL PAIN SNOMED Code(s): 59027600 (2) Leukocytosis Current Visit: Yes Status: Acute Priority: Medium Code(s): D72.829 - ELEVATED WHITE BLOOD CELL COUNT, UNSPECIFIED SNOMED Code(s): 888241101 Plan: 1patient was in the hospital acute left-sided abdominal pain more likely due to possible passage of left-sided kidney stone however CT still showing left-sided mild hydronephrosis and concern for possible pyelonephritis will need to cover for the enteric gram-negative to the likely pathogen, the patient also showing abdominal mass on the CT for which oncology has been consulted and may benefit from repeat CT with oral contrast/IR obtaining biopsy of the area 2-repeat a UA and a culture 3-empirically add Rocephin 2 g daily while waiting for the culture to finalize We will follow on clinical condition and cultures to further adjust medication if needed Thank you for this consultation we will follow the patient along with you Dictation was produced using [employer] dictation software. please excuse any grammatical, word or spelling errors. Time with Patient: Greater than 30
[2024-11-21] MEDS: cefTRIAXone 2 GM in DEXTROSE 5% IN WATER 50 ML IVPB SCH (02:17)
[2024-11-21 07:48] LABS: Appearance,Urine Clear (Clear); Bilirubin,Urine Negative (Negative); Blood,Urine Trace (Negative); Color,Urine Colorless; Glucose,Urine (UA) Negative (Negative); Ketones,Urine 1+ (Negative); Leukocyte Esterase,Urine Negative (Negative); Mucus,Urine Rare /hpf; Nitrite,Urine Negative (Negative); PH, Urine 6.5 (5.0-8.0); Protein,Urine Negative (Negative); RBC,Urine 10 /hpf (0-5); Specific Gravity,Urine 1.017 (1.001-1.035); Squamous Epithelial Cell,Urine 1 /hpf (0-4); Urobilinogen,Urine <2.0 mg/dL (<2.0); WBC,Urine 1 /hpf (0-5)
[2024-11-21 08:49] LABS: Basophils # (A) 0.06 X 10*3/uL (0.00-0.10); Basophils % (A) 0.6 %; Eosinophils # (A) 0.07 X 10*3/uL (0.04-0.35); Eosinophils % (A) 0.7 %; HCT 38.3 % (37.2-46.3); HGB 12.2 g/dL (12.0-15.0); Lymphocytes # (A) 2.07 X 10*3/uL (0.90-5.00); Lymphocytes % (A) 20.4 %; MCH 31.6 pg (27.0-32.0); MCHC 31.9 g/dL (32.0-37.0); MCV 99.2 FL (80.0-97.0); Mean Platelet Volume 11.2 FL (9.5-12.2); Monocytes # (A) 0.73 X 10*3/uL (0.20-1.00); Monocytes % (A) 7.2 %; NRBC Per 100 WBC 0 X 10*3/uL (0.00-0.01); Neutrophils # (A) 7.21 X 10*3/uL (1.80-7.70); Neutrophils % (A) 70.9 %; Platelet Count 356 X 10*3/uL (140-440); RBC 3.86 X 10*6/uL (4.10-5.20); RDW 13.3 % (11.5-14.5); WBC 10.16 X 10*3/uL (4.50-10.00)
[2024-11-21 08:59] LABS: Blood Urea Nitrogen 16.8 mg/dL (9.0-27.0); Chloride 109 mmol/L (96-109); Glucose 102 mg/dL (70-110); Potassium 4.2 mmol/L (3.5-5.5); Sodium 144 mmol/L (135-145)
[2024-11-21 10:23] LABS: Prothrombin Time 11.3 sec (10.0-12.5)
--- NOTE | 2024-11-21 11:24 | P.PN ---
Subjective Progress Note Date: 11/21/24 This is a 73-year-old female admitted with abdominal pain, bloating, ureterolithiasis. Evaluated, cleared by urology for discharge. Imaging reported incidental findings of a lobular ill-defined hypodense mass in the right hemipelvis measuring 11 x 5.7 x 9.2 cm in size, not clearly followed bowel although matted bowel should be considered, appears atypical or abscess, omental caking and neoplasm should be considered within the differential. Free fluid within the abdomen left paracolic gutter and pelvis. Elevated CA125 of 246. Evaluated by oncology. Biopsy with interventional radiology ordered. NPO. Currently denies abdominal pain. Denies chest pain, palpitations or shortness of breath. Maintained on empiric antibiotics of Rocephin. Afebrile, WBC trending down, 10.16. Renal function stable. Denies chest pain, palpitations or shortness of breath. Maintaining O2 sats in the mid to high 90s on room air. Objective - Vital Signs Vital signs: Vital Signs Temp 98.5 F 11/21/24 07:20 Pulse 77 11/21/24 08:55 Resp 18 11/21/24 08:55 BP 153/76 11/21/24 07:20 Pulse Ox 97 11/21/24 07:20 FiO2 Intake & Output 11/20/24 11/21/24 11/21/24 18:59 06:59 18:59 Intake Total 0 Balance 0 Intake: Oral 0 Other: Voiding Method Toilet Toilet Toilet # Voids 5 2 - Exam PHYSICAL EXAM: VITAL SIGNS: [Reviewed] GENERAL: Alert and oriented x 3, sitting up in bed, no acute distress HEENT: Normocephalic, atraumatic conjunctivae normal. eyes normal. MMM. NECK: Supple, no JVD. CARDIOVASCULAR: S1, S2 regular. No murmur RESPIRATION: Unlabored, equal air entry, clear to auscultation with bilateral bases diminished. ABDOMEN: Soft, mildly distended, nontender . No guarding. no organomegaly appreciated. Positive bowel sounds LEGS: No edema. no swelling. No clubbing, no cyanosis. No calf tenderness. Positive DP pulses. NERVOUS SYSTEM: Cranial N 2-12 grossly normal. No focal deficits. Strength and sensation grossly intact.. Skin: Warm and dry, no rash. - Labs CBC & Chem 7: 11/21/24 03:16 11/21/24 03:16 Labs: Abnormal Lab Results - Last 24 Hours (Table) 11/20/24 11/21/24 11/21/24 Range/Units 10:52 03:16 03:16 WBC 10.16 H (4.50-10.00) X 10*3/uL RBC 3.86 L (4.10-5.20) X 10*6/uL MCV 99.2 H (80.0-97.0) FL MCHC 31.9 L (32.0-37.0) g/dL BUN/Creatinine Ratio 24.00 H (12.00-20.00) Ratio CA 125 Antigen 246.0 H (0.0-30.1) U/mL Urine Ketones (Negative) Urine Blood (Negative) Urine RBC (0-5) /hpf Urine Mucus (None) /hpf 11/21/24 Range/Units 07:00 WBC (4.50-10.00) X 10*3/uL RBC (4.10-5.20) X 10*6/uL MCV (80.0-97.0) FL MCHC (32.0-37.0) g/dL BUN/Creatinine Ratio (12.00-20.00) Ratio CA 125 Antigen (0.0-30.1) U/mL Urine Ketones 1+ H (Negative) Urine Blood Trace H (Negative) Urine RBC 10 H (0-5) /hpf Urine Mucus Rare H (None) /hpf Assessment and Plan Assessment: Abdominal pain; left-sided abdominal/flank pain, ureterolithiasis. CT also reported left-sided mild hydronephrosis, possible pyelonephritis, abdominal mass Leukocytosis Intra-abdominal mass; CT reporting lobular ill-defined hypodense mass in the right hemipelvis measuring 11 x 5.7 x 9.2 cm in size, not clearly followed bowel although matted bowel should be considered, appears atypical or abscess, omental caking and neoplasm should be considered, workup in progress. Elevated CA125, biopsy pending. History of fibroids, hysterectomy Reported normal colonoscopy 4 to 5 years ago Family history of pancreatic cancer, possible liver malignancy in siblings, without genetic testing. Hypertension Hyperlipidemia Depression, anxiety Plan: Continue on current medication regimen ,monitoring and symptomatic treatment. Urine and blood cultures in progress. continues on empiric antibiotics as per ID.NPO. biopsy with interventional radiology of right lower quadrant mass pending. The impression and plan of care has been dictated as directed. : I performed a history and examination of this patient, discussed the same with the dictator. I agree with the dictator's note ,documented as a scribe. Any additional findings or plans will be noted.
--- NOTE | 2024-11-21 12:54 | P.PN ---
Subjective Progress Note Date: 11/21/24 SURGICAL PROGRESS NOTE CHIEF COMPLAINT: Abdominal pain HISTORY OF PRESENT ILLNESS: Patient reports her abdominal pain has resolved. She denies any difficulty urinating. She does complain of feeling gassy. She is having flatus. No bowel movement. She is scheduled for a biopsy of the right lower quadrant abdominal mass today by IR service. Her CA125 level is elevated. WBC is down from 15.16-10.16 PHYSICAL EXAM: VITAL SIGNS: Reviewed. GENERAL: Well-developed in no acute distress. ABDOMEN: Soft. Nondistended. Nontender. NEUROLOGIC: Alert and oriented. Cranial nerves II through XII grossly intact. ASSESSMENT: 1. Right lower quadrant abdominal mass 2. Elevated CA 125 level 3. Left ureteral stone PLAN: - Patient scheduled for biopsy of right abdominal mass by IR service today - Patient can be discharged from surgical standpoint after biopsy completed. Physician Inorganic Chemist note has been reviewed by physician. Signing provider agrees with the documented findings, assessment, and plan of care. Objective - Vital Signs Vital signs: Vital Signs Temp 98.5 F 11/21/24 07:20 Pulse 77 11/21/24 08:55 Resp 18 11/21/24 08:55 BP 153/76 11/21/24 07:20 Pulse Ox 97 11/21/24 07:20 FiO2 Intake & Output 11/20/24 11/21/24 11/21/24 18:59 06:59 18:59 Intake Total 0 Balance 0 Intake: Oral 0 Other: Voiding Method Toilet Toilet Toilet # Voids 5 2 - Labs CBC & Chem 7: 11/21/24 03:16 11/21/24 03:16 Labs: Abnormal Lab Results - Last 24 Hours (Table) 11/20/24 11/21/24 11/21/24 Range/Units 10:52 03:16 03:16 WBC 10.16 H (4.50-10.00) X 10*3/uL RBC 3.86 L (4.10-5.20) X 10*6/uL MCV 99.2 H (80.0-97.0) FL MCHC 31.9 L (32.0-37.0) g/dL BUN/Creatinine Ratio 24.00 H (12.00-20.00) Ratio CA 125 Antigen 246.0 H (0.0-30.1) U/mL Urine Ketones (Negative) Urine Blood (Negative) Urine RBC (0-5) /hpf Urine Mucus (None) /hpf 11/21/24 Range/Units 07:00 WBC (4.50-10.00) X 10*3/uL RBC (4.10-5.20) X 10*6/uL MCV (80.0-97.0) FL MCHC (32.0-37.0) g/dL BUN/Creatinine Ratio (12.00-20.00) Ratio CA 125 Antigen (0.0-30.1) U/mL Urine Ketones 1+ H (Negative) Urine Blood Trace H (Negative) Urine RBC 10 H (0-5) /hpf Urine Mucus Rare H (None) /hpf
--- NOTE | 2024-11-21 13:06 | P.PN ---
Subjective Progress Note Date: 11/21/24 No acute overnight event, denies any flank pain or gross hematuria. Creatinine is stable at 0.7 Objective - Vital Signs Vital signs: Vital Signs Temp 98.5 F 11/21/24 07:20 Pulse 77 11/21/24 08:55 Resp 18 11/21/24 08:55 BP 153/76 11/21/24 07:20 Pulse Ox 97 11/21/24 07:20 FiO2 Intake & Output 11/20/24 11/21/24 11/21/24 18:59 06:59 18:59 Intake Total 0 Balance 0 Intake: Oral 0 Other: Voiding Method Toilet Toilet Toilet # Voids 5 2 - Constitutional General appearance: Present: no acute distress - Gastrointestinal General gastrointestinal: Absent: tenderness - Psychiatric Psychiatric: Present: A&O x's 3 - Labs CBC & Chem 7: 11/21/24 03:16 11/21/24 03:16 Labs: Abnormal Lab Results - Last 24 Hours (Table) 11/20/24 11/21/24 11/21/24 Range/Units 10:52 03:16 03:16 WBC 10.16 H (4.50-10.00) X 10*3/uL RBC 3.86 L (4.10-5.20) X 10*6/uL MCV 99.2 H (80.0-97.0) FL MCHC 31.9 L (32.0-37.0) g/dL BUN/Creatinine Ratio 24.00 H (12.00-20.00) Ratio CA 125 Antigen 246.0 H (0.0-30.1) U/mL Urine Ketones (Negative) Urine Blood (Negative) Urine RBC (0-5) /hpf Urine Mucus (None) /hpf 11/21/24 Range/Units 07:00 WBC (4.50-10.00) X 10*3/uL RBC (4.10-5.20) X 10*6/uL MCV (80.0-97.0) FL MCHC (32.0-37.0) g/dL BUN/Creatinine Ratio (12.00-20.00) Ratio CA 125 Antigen (0.0-30.1) U/mL Urine Ketones 1+ H (Negative) Urine Blood Trace H (Negative) Urine RBC 10 H (0-5) /hpf Urine Mucus Rare H (None) /hpf Assessment and Plan Assessment: This is a 73-year-old female history of a possible 5 mm left-sided ureteral stone, she is asymptomatic kidney function is normal. From urology standpoint we will continue with medical expulsive therapy. She if she does develop symptoms at the appointment we will proceed with intervention but given the lack of symptoms we will see if she can pass the stone spontaneously. She is okay for discharge from urology standpoint, can follow-up as an outpatient with Dr. Álvarez in 1 to 2 weeks
[2024-11-21] MEDS: HYDROmorphone 0.5 MG/0.5 ML SYRINGE IVP PRN (13:59)
--- NOTE | 2024-11-21 21:26 | P.PN ---
Subjective Progress Note Date: 11/21/24 Principal diagnosis: Reason for follow-up is leukocytosis Patient is a 73-year-old female past medical history of negative for hypertension and hyperlipidemia presenting to the hospital for evaluation of left-sided abdominal pain that woke her up at 3 in the morning patient has been diagnosed with possible passage of a renal stone on the left side and pyelonephritis and there was a abdominal mass. On today's evaluation that is 11/21/2024, patient has been afebrile, patient is breathing comfortably and is currently on room air, patient denies having any chest pain and cough, patient denies nausea vomiting or diarrhea and no abdominal pain. Patient white count is down to 10.16 creatinine 0.7 repeat UA also showed mostly hematuria Objective - Vital Signs Vital signs: Vital Signs Temp 98.5 F 11/21/24 07:20 Pulse 77 11/21/24 08:55 Resp 18 11/21/24 08:55 BP 153/76 11/21/24 07:20 Pulse Ox 97 11/21/24 07:20 FiO2 Intake & Output 11/20/24 11/21/24 11/21/24 18:59 06:59 18:59 Intake Total 0 Balance 0 Intake: Oral 0 Other: Voiding Method Toilet Toilet Toilet # Voids 5 2 - Exam GENERAL DESCRIPTION: An elderly female lying in bed in no distress RESPIRATORY SYSTEM: Unlabored breathing , decreased breath sounds at bases HEART: S1 S2 regular rate and rhythm , ABDOMEN: Soft , no tenderness EXTREMITIES: No edema feet - Labs CBC & Chem 7: 11/21/24 03:16 11/21/24 03:16 Labs: Abnormal Lab Results - Last 24 Hours (Table) 11/20/24 11/21/24 11/21/24 Range/Units 10:52 03:16 03:16 WBC 10.16 H (4.50-10.00) X 10*3/uL RBC 3.86 L (4.10-5.20) X 10*6/uL MCV 99.2 H (80.0-97.0) FL MCHC 31.9 L (32.0-37.0) g/dL BUN/Creatinine Ratio 24.00 H (12.00-20.00) Ratio CA 125 Antigen 246.0 H (0.0-30.1) U/mL Urine Ketones (Negative) Urine Blood (Negative) Urine RBC (0-5) /hpf Urine Mucus (None) /hpf 11/21/24 Range/Units 07:00 WBC (4.50-10.00) X 10*3/uL RBC (4.10-5.20) X 10*6/uL MCV (80.0-97.0) FL MCHC (32.0-37.0) g/dL BUN/Creatinine Ratio (12.00-20.00) Ratio CA 125 Antigen (0.0-30.1) U/mL Urine Ketones 1+ H (Negative) Urine Blood Trace H (Negative) Urine RBC 10 H (0-5) /hpf Urine Mucus Rare H (None) /hpf Assessment and Plan (1) Abdominal pain Current Visit: Yes Status: Acute Priority: High Code(s): R10.9 - UNSPECIFIED ABDOMINAL PAIN SNOMED Code(s): 29002514 (2) Leukocytosis Current Visit: Yes Status: Acute Priority: Medium Code(s): D72.829 - ELEVATED WHITE BLOOD CELL COUNT, UNSPECIFIED SNOMED Code(s): 945254242 Plan: 1patient was in the hospital acute left-sided abdominal pain more likely due to possible passage of left-sided kidney stone however CT still showing left-sided mild hydronephrosis and concern for possible pyelonephritis will need to cover for the enteric gram-negative to the likely pathogen, the patient also showing a bdominal mass on the CT for which oncology has been consulted and patient is status post biopsy of the area results will be followed 2-patient white count is trending down continue with Rocephin 2 g daily while waiting for the culture to finalize Dictation was produced using [employer] software. please excuse any grammatical, word or spelling errors. Time with Patient: Less than 30
--- NOTE | 2024-11-22 06:52 | CT ---
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 COMPARISON: CT abdomen and pelvis November 19, 2024 CT DLP: 3558 mGycm, Automated exposure control for dose reduction was used. ATTENDING: Dr. Bennett TECHNIQUE: CT guided percutaneous biopsy of right lower quadrant lobulated mass using coaxial method. The patien t was monitored by a qualified trained nurse. One or more CT dose reduction strategies were utilized during this examination. FINDINGS: The procedure was explained to the patient including risks of bleeding, bruising, infection, damage to nearby organs and need for additional therapy including potential surgery. All questions were ans wered and consent was obtained. The previous studies were reviewed. The patient was placed on the CT couch in the supine position. The overlying skin was marked and prepped using sterile method. Timeout was taken per protocol. Follo wing administration of conscious sedation and local anesthesia a 18 gauge coaxial needle was introd uced on the right side. The coaxial needle tip was directed into the mass with CT guidance. 2-3 frag ment. 19 gauge coaxial biopsies were then obtained. The biopsy samples were [facility] for lab analysis. Following the procedure the needle was removed and sterile dressing was ap plied to the percutaneous site. Post biopsy imaging demonstrated tiny amount of hemorrhage at site o f sampling. Vital signs were monitored before during and after procedure. Patient returned to floor i n stable condition. IMPRESSIONS: Status post percutaneous right lower quadrant mass biopsy as described above. Pathology results shereen haq. [facility], , 11/22/2024 6:49 AM
[2024-11-22 08:05] VITALS: PULSE 74; RESP 18; TEMP 98.4
[2024-11-22 10:01] VITALS: BP 134/73
--- NOTE | 2024-11-22 14:37 | P.PN ---
Subjective Progress Note Date: 11/22/24 Principal diagnosis: Reason for follow-up is leukocytosis Patient is a 73-year-old female past medical history of negative for hypertension and hyperlipidemia presenting to the hospital for evaluation of left-sided abdominal pain that woke her up at 3 in the morning patient has been diagnosed with possible passage of a renal stone on the left side and pyelonephritis and there was a abdominal mass. On today's evaluation that is 11/22/2024, Patient is afebrile this morning patient denies having any chest pain shortness of breath or cough, the patient is currently on room air, patient denies any abdominal pain no diarrhea no nausea no vomiting. No CBC was done today culture has been negative so far Objective - Vital Signs Vital signs: Vital Signs Temp 98.4 F 11/22/24 08:00 Pulse 74 11/22/24 08:00 Resp 18 11/22/24 08:00 BP 134/73 11/22/24 09:40 Pulse Ox 93 L 11/22/24 08:00 FiO2 Intake & Output 11/21/24 11/22/24 11/22/24 18:59 06:59 18:59 Intake Total 1000 Balance 1000 Intake: Oral 1000 Other: Voiding Method Toilet Toilet # Voids 4 2 - Exam GENERAL DESCRIPTION: An elderly female lying in bed in no distress RESPIRATORY SYSTEM: Unlabored breathing , decreased breath sounds at bases HEART: S1 S2 regular rate and rhythm , ABDOMEN: Soft , no tenderness EXTREMITIES: No edema feet - Labs CBC & Chem 7: 11/21/24 03:16 11/21/24 03:16 Labs: Microbiology - Last 24 Hours (Table) 11/20/24 12:34 Blood Culture - Preliminary Blood 11/20/24 14:46 Urine Culture - Final Urine,Voided Assessment and Plan (1) Abdominal pain Current Visit: Yes Status: Acute Priority: High Code(s): R10.9 - UNSPECIFIED ABDOMINAL PAIN SNOMED Code(s): 05289918 (2) Leukocytosis Current Visit: Yes Status: Acute Priority: Medium Code(s): D72.829 - ELEVATED WHITE BLOOD CELL COUNT, UNSPECIFIED SNOMED Code(s): 892517644 (3) Pyelonephritis Current Visit: Yes Status: Acute Code(s): N12 - TUBULO-INTERSTITIAL NEPHRITIS, NOT SPCF ACUTE OR CHRONIC SNOMED Code(s): 27175613 Plan: 1patient was in the hospital acute left-sided abdominal pain more likely due to possible passage of left-sided kidney stone however CT still showing left-sided mild hydronephrosis and concern for possible pyelonephritis will need to cover for the enteric gram-negative to the likely pathogen, the patient also showing abdominal mass on the CT for which oncology has been consulted and patient is status post biopsy of the area results will be followed 2-patient white count is trending down as of yesterday no CBC was done today, patient continue with Rocephin 2 g daily while inpatient however will be able to finish therapy with oral Ceftin x 7 days on discharge Dictation was produced using [employer] dictation software. please excuse any grammatical, word or spelling errors. Time with Patient: Less than 30
--- NOTE | 2024-11-22 14:56 | P.PN ---
Subjective Progress Note Date: 11/22/24 SURGICAL PROGRESS NOTE CHIEF COMPLAINT: Abdominal pain HISTORY OF PRESENT ILLNESS: Patient is status post biopsy of right lower quadrant mass by IR service. She denies any abdominal pain. Denies any nausea or vomiting. Afebrile. PHYSICAL EXAM: VITAL SIGNS: Reviewed. GENERAL: Well-developed in no acute distress. ABDOMEN: Soft. Nondistended. Nontender. Right lower quadrant bandage clean dry and intact NEUROLOGIC: Alert and oriented. Cranial nerves II through XII grossly intact. ASSESSMENT: 1. Right lower quadrant abdominal mass 2. Elevated CA 125 level 3. Left ureteral stone PLAN: -Patient can be discharged from surgical standpoint -Follow-up on biopsy results Physician President And Ceo note has been reviewed by physician. Signing provider agrees with the documented findings, assessment, and plan of care. Objective - Vital Signs Vital signs: Vital Signs Temp 98.4 F 11/22/24 08:00 Pulse 74 11/22/24 08:00 Resp 18 11/22/24 08:00 BP 134/73 11/22/24 09:40 Pulse Ox 93 L 11/22/24 08:00 FiO2 Intake & Output 11/21/24 11/22/24 11/22/24 18:59 06:59 18:59 Intake Total 1000 Balance 1000 Intake: Oral 1000 Other: Voiding Method Toilet Toilet # Voids 4 2 - Labs CBC & Chem 7: 11/21/24 03:16 11/21/24 03:16 Labs: Microbiology - Last 24 Hours (Table) 11/20/24 12:34 Blood Culture - Preliminary Blood 11/20/24 14:46 Urine Culture - Final Urine,Voided
[2024-11-22] MEDS: PANTOPRAZOLE 40 MG/10 ML VIAL IVP SCH (16:57)
--- NOTE | 2024-11-24 14:31 | P.DS ---
Providers Date of admission: 11/19/24 13:28 Expected date of discharge: 11/22/24 Attending physician: Doron Church Consults: 11/19/24 13:28 Consult Physician Urgent Consulting Provider: Cortez Neal Consult Reason/Comments: Abdominal mass, abdominal pain Do you want consulting provider notified?: Yes 11/19/24 21:13 Consult Physician Routine Consulting Provider: Keanu Álvarez Consult Reason/Comments: Hydronephrosis/pyelonephritis Do you want consulting provider notified?: Yes, Notify in am 11/19/24 21:15 Consult Physician Routine Consulting Provider: Zoraida Nicole Consult Reason/Comments: Sepsis Do you want consulting provider notified?: Yes, Notify in am 11/20/24 10:40 Consult Physician Routine Consulting Provider: Juan C Ly Consult Reason/Comments: Abnormal CAT scan with mass in abdomen Do you want consulting provider notified?: Yes Primary care physician: Doron Church Hospital Course: Final Diagnosis: Abdominal pain; left-sided abdominal/flank pain, ureterolithiasis. CT also reported left-sided mild hydronephrosis, possible pyelonephritis, abdominal mass. Leukocytosis Intra-abdominal mass; CT reporting lobular ill-defined hypodense mass in the right hemipelvis measuring 11 x 5.7 x 9.2 cm in size, not clearly followed bowel although matted bowel should be considered, appears atypical or abscess, omental caking and neoplasm should be considered, workup in progress. Elevated CA125, status post biopsy, pathology pending. History of fibroids, hysterectomy Reported normal colonoscopy 4 to 5 years ago Family history of pancreatic cancer, possible liver malignancy in siblings, without genetic testing. Hypertension Hyperlipidemia Depression, anxiety Hospital course:Progress Note Date: 11/21/24 This is a 73-year-old female admitted with abdominal pain, bloating, ureterolithiasis. Evaluated, cleared by urology for discharge. Imaging reported incidental findings of a lobular ill-defined hypodense mass in the right hemipelvis measuring 11 x 5.7 x 9.2 cm in size, not clearly followed bowel although matted bowel should be considered, appears atypical or abscess, omental caking and neoplasm should be considered within the differential. Free fluid within the abdomen left paracolic gutter and pelvis. Elevated CA125 of 246. Evaluated by oncology. Biopsy with interventional radiology ordered. NPO. Currently denies abdominal pain. Denies chest pain, palpitations or shortness of breath. Maintained on empiric antibiotics of Rocephin. Afebrile, WBC trending down, 10.16. Renal function stable. Denies chest pain, palpitations or shortness of breath. Maintaining O2 sats in the mid to high 90s on room air. Urine and blood cultures in progress. continues on empiric antibiotics as per ID.NPO. biopsy with interventional radiology of right lower quadrant mass pending. 11/22/2024 status post biopsies, pathology pending. Tolerated procedure well. Denies abdominal pain. Denies nausea vomiting or diarrhea. Denies lightheadedness, dizziness or focal deficits. Denies chest pain, palpitations or shortness of breath. Maintained on Rocephin, afebrile, WBC trending down. cleared by urology, general surgery, infectious disease for discharge. Patient has been advised to follow-up with oncology in 1 week for pathology results. Patient will be discharged home on oral Ceftin x 1 week as recommended per ID. Patient will be discharged home today in a stable condition with guarded prognosis. The impression and plan of care has been dictated as directed. : I performed a history and examination of this patient, discussed the same with the dictator. I agree with the dictator's note ,documented as a scribe. Any additional findings or plans will be noted. Patient Condition at Discharge: Stable Plan - Discharge Summary Discharge Rx Participant: Yes New Discharge Prescriptions: New Pantoprazole [Protonix] 40 mg PO DAILY #30 tab cefuroxime axetiL [Ceftin] 500 mg PO BID 7 Days #14 tab Continue lisinopriL [Zestril] 20 mg PO BID amLODIPine BESYLATE 5 mg PO DAILY Atorvastatin Calcium [Lipitor] 10 mg PO HS Escitalopram Oxalate [Lexapro] 10 mg PO DAILY Discharge Medication List amLODIPine BESYLATE 5 mg PO DAILY 07/18/20 [History] lisinopriL [Zestril] 20 mg PO BID 07/18/20 [History] Atorvastatin Calcium [Lipitor] 10 mg PO HS 01/31/21 [History] Escitalopram Oxalate [Lexapro] 10 mg PO DAILY 01/31/21 [History] Pantoprazole [Protonix] 40 mg PO DAILY #30 tab 11/22/24 [Rx] cefuroxime axetiL [Ceftin] 500 mg PO BID 7 Days #14 tab 11/22/24 [Rx] Follow up Appointment(s)/Referral(s): Juan C Ly MD [STAFF PHYSICIAN] - 12/13/24 1:15 pm Doron Church DO [Primary Care Provider] - 12/01/24 10:20 am Keanu Álvarez MD [STAFF PHYSICIAN] - 12/05/24 11:40 am Patient Instructions/Handouts: Acute Abdominal Pain (DC) Activity/Diet/Wound Care/Special Instructions: Arrange OP F/U with Oncology for Pathology results Discharge Disposition: HOME SELF-CARE
--- NOTE | 2024-12-01 12:33 | CDI ---
Documentation Clarification Form Date: 12/01/2024 12:20:14 PM From: Renu Claudio Phone: Admit Date: 11/19/2024 01:28:00 PM Patient Name: Caty Donnelly Visit Number: [id number] Discharge Date: 11/22/2024 05:20:00 PM ATTENTION: The Clinical Documentation Specialists (CDI) and [facility] Coding Staff appreciate your assistance in clarifying documentation. Please respond to the clarification below the line at the bottom and electronically sign. The CDI & [facility] Coding staff will review the response and follow-up if needed. Please note: Queries are made part of the Legal Health Record. If you have any questions, please contact the author of this message via ITS. 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 . Coding guidelines do not allow coding professionals to code based on pathology results; therefore, clarification is requested. History/risk factors: 73-year-old female, history ofhypertension,hyperlipidemia, who presents to the emergency department complaining of waking up this morning at 3 AM having diarrhea. Patient states shortly after that she started havingnausea and vomiting. Patient states her stomach continues to feelbloatedand she has some painin the left side Clinical Indicators: Consult Note 11/20 -She had act scanin the er showing some mild left sided hydro with apossiblemidureteral stone. HEr urine showed some rbc's butwas notinfected. SHe also was noted to have a right sided abdominalmass Pn 11/20- bdominalmass;CT of the abdomenreveals large lobular masslike area measuring 11 x 5. 7 x 9. 2 cm;adenopathycould be in the differential;abscess cannot beruled out; repeatCTwith oral contrast isrecommended Pn 11/21 -Imaging reported incidental findings of a lobular ill-defined hypodensemassin the right hemipelvis measuring 11 x 5. 7 x 9. 2 cm in size, not clearly followed bowel although matted bowel should be considered, appears atypical or abscess, omental caking and neoplasm should be considered within the differential. DS on 11/22 -Urine and blood cultures in progress. continues on empiric antibiotics as per ID. NPO. 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 ]: [ @@ ] Yes [ ] No [ ] Other (please specify) [ ] Unable to determine (Template Last Revised: October 2020) MTDD
== END 2024-11-22 17:20 | disposition home or self-care (01) | DRG 375 ==
LOC: EC 09:33 → 4SSUR 13:28
PROVIDERS: ADMIT Family Medicine; ATTEND Family Medicine
PROC: 0DD Gastrointestinal System, Extraction (ICD-10-PCS; principal; 2024-11-22)
DX: C48.1 Malignant neoplasm of specified parts of peritoneum (principal); C56.9 Malignant neoplasm of unspecified ovary; R18.8 Other ascites; N13.6 Pyonephrosis; I10 Essential (primary) hypertension; F32.A Depression, unspecified; F41.9 Anxiety disorder, unspecified; E78.5 Hyperlipidemia, unspecified; Z79.899 Other long term (current) drug therapy; Z91.040 Latex allergy status; Z90.710 Acquired absence of both cervix and uterus
CPT/HCPCS: 36415; 49180; 74177; 77012; 80048; 80053; 81001; 82105; 82150; 82378; 83605; 83690; 84145; 85025; 85610; 86301; 86304; 87040; 87086; 88305; 88341; 88342; 96361; 96374; 96375; 96376; 99285

== ENCOUNTER 2025-01-16 07:15 | Day surgery (SDC) | payer MEDICARE ==
[2025-01-16] MEDS ORDERED: LIDOCAINE 1% (10MG/ML) FOR IV START INTRADERMA PRN (07:41)
[2025-01-16 08:00] VITALS: TEMP 97
[2025-01-16] MEDS: IV FLUID CONTINUATION 1,000 ML IV ONE (08:10)
[2025-01-16] MEDS: LACTATED RINGERS 1,000 ML IV SCH (08:11)
[2025-01-16] MEDS: ONDANSETRON 4 MG/2 ML VIAL IVP STA (08:14)
[2025-01-16] MEDS ORDERED: LIDOCAINE 1% INJ 10MG/ML (20 ML MDV) ONE (08:54)
[2025-01-16] MEDS ORDERED: PROPOFOL 10 MG/ML 20 ML VIAL IV ONE (08:54)
[2025-01-16 09:29] VITALS: BP 108/69; PULSE 69; RESP 14
[2025-01-16 09:40] LABS: Glucose,Whole Blood 152 mg/dL (70-110)
--- NOTE | 2025-01-16 20:55 | P.OP ---
Date of Procedure: 01/16/25 Preoperative Diagnosis: Ovarian Cancer Postoperative Diagnosis: Normal Colon Procedure(s) Performed: Colonoscopy Anesthesia: MAC Surgeon: Javier Goodson Pathology: none sent Condition: stable Disposition: PACU Description of Procedure: After informed consent was obtained, the patient was placed in the left lateral position and the above medications were titrated with adequate sedation. Monitoring was provided throughout the entire procedure. Digital rectal exam was performed revealing normal sphincter tone and no external hemorrhoids. The Pentax video colonoscope was inserted into rectum and advanced under direct visualization, without difficulty, to the cecum, where the cecal strap, appendiceal orifice, and the ileocecal valve were identified. The quality of the preparation was good. The colonoscope was then withdrawn while carefully examining the mucosa. The colonic mucosa appeared normal with normal vascularity and haustral markings. No masses, polyps, AVM/s or diverticula were seen. On retroflexed view in the rectum, there are small internal hemorrhoids. The endoscope was removed and the procedure terminated. The patient tolerated the procedure well without complications.
== END 2025-01-16 09:50 | disposition home or self-care (01) ==
LOC: ORWHC2ENDO 07:15
PROVIDERS: ATTEND Surgery
DX: C56.9 Malignant neoplasm of unspecified ovary (principal); K64.8 Other hemorrhoids; I10 Essential (primary) hypertension; E78.5 Hyperlipidemia, unspecified; J45.909 Unspecified asthma, uncomplicated; F12.90 Cannabis use, unspecified, uncomplicated; Z79.899 Other long term (current) drug therapy; Z90.710 Acquired absence of both cervix and uterus; Z98.890 Other specified postprocedural states; Z91.040 Latex allergy status
CPT/HCPCS: 45378; J2405; J2003; J2704

== ENCOUNTER 2025-01-17 11:24 | Emergency (ER) | payer MEDICARE ==
--- NOTE | 2025-01-17 12:23 | ED ---
General Adult HPI - General Chief complaint: Abdominal Pain Stated complaint: Abd pain Time Seen by Provider: 01/17/25 11:41 Source: patient, RN notes reviewed Mode of arrival: ambulatory Limitations: no limitations - History of Present Illness Initial comments: 74-year-old female presents to the emergency department for upper right-sided abdominal pain. Patient states that this started when she woke up this morning. Patient notes that she had a colonoscopy yesterday with Dr. Goodson. Patient states that she was advised to be evaluated if she started experiencing pain that did not feel like "gas pain." Patient reports that she has had 2 bowel mo vements since the procedure. She she denies any blood in the stool. She is passing gas. She does endorse nausea which is typical for her. Denies any vomiting. Denies any known fever, chills. - Related Data Home Medications Medication Instructions Recorded Confirmed amLODIPine BESYLATE 5 mg PO DAILY 07/18/20 01/16/25 lisinopriL [Zestril] 20 mg PO BID 07/18/20 01/16/25 Atorvastatin Calcium [Lipitor] 10 mg PO HS 01/31/21 01/16/25 Escitalopram Oxalate [Lexapro] 10 mg PO DAILY 01/31/21 01/16/25 Anastrozole [Arimidex] 1 mg PO DAILY 01/12/25 01/16/25 Calcium Carbonate [Calcium] 1,200 mg PO DAILY 01/12/25 01/16/25 Cholecalciferol (Vitamin D3) 50 mcg PO DAILY 01/12/25 01/16/25 [Vitamin D3 (50 Mcg = 2000 Iu)] Allergies Allergy/AdvReac Type Severity Reaction Status Date / Time latex Allergy Anaphylaxis Verified 01/17/25 11:28 Review of Systems ROS Statement: Those systems with pertinent positive or pertinent negative responses have been documented in the HPI. ROS Other: All systems not noted in ROS Statement are negative. Past Medical History Past Medical History: Asthma, Cancer, Hyperlipidemia, Hypertension Additional Past Medical History / Comment(s): hx colon polyps; ovarian ca diagnosed November 2024- no surg yet- surg scheduled 01/25/25. History of Any Multi-Drug Resistant Organisms: None Reported Past Surgical History: Back Surgery, Hysterectomy Additional Past Surgical History / Comment(s): Laminectomy and discectomy to back; abdominoplasty 30 yrs ago; colonoscopy Past Anesthesia/Blood Transfusion Reactions: Postoperative Nausea & Vomiting (PONV) Past Psychological History: Anxiety Smoking Status: Never smoker General Exam Limitations: no limitations General appearance: alert, in no apparent distress Head exam: Present: atraumatic, normocephalic, normal inspection Eye exam: Present: normal appearance, PERRL, EOMI. Absent: scleral icterus, conjunctival injection, periorbital swelling ENT exam: Present: normal exam, mucous membranes moist Respiratory exam: Present: normal lung sounds bilaterally. Absent: respiratory distress, wheezes, rales, rhonchi, stridor Cardiovascular Exam: Present: regular rate, normal rhythm, normal heart sounds. Absent: systolic murmur, diastolic murmur, rubs, gallop, clicks GI/Abdominal exam: Present: distended, tenderness (Right upper abdomen), hyp eractive bowel sounds. Absent: guarding, rebound, rigid Extremities exam: Present: normal inspection, full ROM, normal capillary refill. Absent: tenderness, pedal edema, joint swelling, calf tenderness Neurological exam: Present: alert, oriented X3 Psychiatric exam: Present: normal affect, normal mood Skin exam: Present: warm, dry, intact, normal color. Absent: rash Course Vital Signs 01/17/25 01/17/25 01/17/25 11:26 13:17 14:56 Temperature 97.9 F Pulse Rate 87 72 70 Respiratory 16 16 17 Rate Blood Pressure 100/65 131/89 127/67 O2 Sat by Pulse 96 97 97 Oximetry 01/17/25 01/17/25 15:00 17:45 Temperature 99.4 F Pulse Rate 71 73 Respiratory 16 17 Rate Blood Pressure 127/67 125/72 O2 Sat by Pulse 96 98 Oximetry Medical Decision Making - Medical Decision Making Was pt. sent in by a medical professional or institution (, PA, GANDY DANCER, urgent care, hospital, or usp...) When possible be specific @ -No Did you speak to anyone other than the patient for history (EMS, parent, family, police, friend...)? What history was obtained from this source @ -No Did you review nursing and triage notes (agree or disagree)? Why? @ -I reviewed and agree with nursing and triage notes Were old charts reviewed (outside hosp., previous admission, EMS record, old EKG, old radiological studies, urgent care reports/EKG's, usp records)? Report findings @ -No old charts were reviewed Differential Diagnosis (chest pain, altered mental status, abdominal pain women, abdominal pain men, vaginal bleeding, weakness, fever, dyspnea, syncope, headache, dizziness, GI bleed, back pain, seizure, CVA, palpatations, mental health, musculoskeletal)? @ -Differential Abdominal Pain Women: Appendicitis, Cholecystitis, diverticulosis, ischemic bowel, pancreatitis, hepatitis, UTI, gastroenteritis, AAA, incarcerated hernia, bowel obstruction, constipation, inflammatory bowel, hepatitis, peptic ulcer disease, splenic infarction, perforated viscus, vulvitis, ovarian torsion, PID, kidney stone, placenta abruption, this is not meant to be an all-inclusive list EKG interpreted by me (3pts min.). @ -None X-rays interpreted by me (1pt min.). @ -KUB x-ray reveals nonspecific bowel gas pattern CT interpreted by me (1pt min.). @ -CT of the abdomen pelvis reveals moderate to marked ascites increased from interval, moderate omental caking essentially unchanged, no evidence of bowel obstruction U/S interpreted by me (1pt. min.). @ -None done What testing was considered but not performed or refused? (CT, X-rays, U/S, labs)? Why? @ -None What meds were considered but not given or refused? Why? @ -None Did you discuss the management of the patient with other professionals (professionals i.e. , PA, GANDY DANCER, lab, RT, psych nurse, social studies department chair, lawyer criminal, teacher, medical laboratory technical officer, case reviewer)? Give summary @ -Management discussed with Dr. Mayorga, general surgery recommended CT of the abdomen pelvis after evaluating patient Was smoking cessation discussed for >3mins.? @ -No Was critical care preformed (if so, how long)? @ -No Were there social determinants of health that impacted care today? How? (Homelessness, low income, unemployed, alcoholism, drug addiction, transportation, low edu. Level, literacy, decrease access to med. care, halfway, rehab)? @ -No Was there de-escalation of care discussed even if they declined (Discuss DNR or withdrawal of care, Hospice)? DNR status @ -No What co-morbidities impacted this encounter? (DM, HTN, Smoking, COPD, CAD, Cancer, CVA, ARF, Chemo, Hep., AIDS, mental health diagnosis, sleep apnea, morbid obesity)? @ -None Was patient admitted / discharged? Hospital course, mention meds given and route, prescriptions, significant lab abnormalities, going to OR and other pertinent info. @ -Discharged. Patient presented the emergency department for evaluation of abdominal pain following colonoscopyLaboratory studies obtained revealing leukocytosis at 13.4, hemoglobin 11.7; CMP is nonactionable. KUB is performed revealing a nonspecific bowel gas pattern. I talked to Dr. Mayorga, general surgery who come to the emergency department to evaluate the patient and recommended CT of the abdomen pelvis. I discussed the results with him, the findings of ascites are unrelated to recent procedure. The patient will follow- up with her colorectal surgeon tomorrow as scheduled. She is scheduled for surgery in 1 week. She is understanding agreeable with plan. Patient stable at time of discharge. Was discussed with Dr. Guo. Undiagnosed new problem with uncertain prognosis? @ -No Drug Therapy requiring intensive monitoring for toxicity (Heparin, Nitro, I nsulin, Cardizem)? @ -No Were any procedures done? @ -No Diagnosis/symptom? @ -Abdominal pain, ascites Acute, or Chronic, or Acute on Chronic? @ -Acute Uncomplicated (without systemic symptoms) or Complicated (systemic symptoms)? @ -Uncomplicated Side effects of treatment? @ -No Exacerbation, Progression, or Severe Exacerbation? @ -No Poses a threat to life or bodily function? How? (Chest pain, USA, VT, pneumonia, PE, COPD, DKA, ARF, appy, cholecystitis, CVA, Diverticulitis, Homicidal, Ko icidal, threat to staff... and all critical care pts) @ -No - Lab Data Result diagrams: 01/17/25 13:14 01/17/25 13:14 Lab Results 01/17/25 01/17/25 Range/Units 13:14 13:14 WBC 13.47 H (4.50-10.00) 10*3/uL RBC 3.82 L (4.10-5.20) 10*6/uL Hgb 11.7 L (12.0-15.0) g/dL Hct 35.7 L (37.2-46.3) % MCV 93.5 (80.0-97.0) fL MCH 30.6 (27.0-32.0) pg MCHC 32.8 (32.0-37.0) g/dL Plt Count 446 H (140-440) 10*3/uL MPV 11.3 (9.5-12.2) fL Immature Gran % (Auto) 0.4 % Neutrophils % 86.9 % Lymphocytes % 5.4 % Monocytes % 6.8 % Eosinophils % 0.1 % Basophils % 0.4 % Immature Gran # 0.05 H (0.00-0.04) 10*3/uL Neutrophils # 11.71 H (1.80-7.70) 10*3/uL Lymphocytes # 0.73 L (0.90-5.00) 10*3/uL Monocytes # 0.92 (0.20-1.00) 10*3/uL Eosinophils # 0.01 L (0.04-0.35) 10*3/uL Basophils # 0.05 (0.00-0.10) 10*3/uL Sodium 138 (137-145) mmol/L Potassium 4.1 (3.5-5.1) mmol/L Chloride 100 (98-107) mmol/L Carbon Dioxide 24 (22-30) mmol/L Anion Gap 14 mmol/L BUN 27 H (7-17) mg/dL Creatinine 1.09 H (0.52-1.04) mg/dL Est GFR (CKD-EPI)AfAm 59 (>60 ml/min/1.73 sqM) Est GFR (CKD-EPI)NonAf 51 (>60 ml/min/1.73 sqM) Glucose 129 H (74-99) mg/dL Calcium 9.6 (8.4-10.2) mg/dL Total Bilirubin 0.6 (0.2-1.3) mg/dL AST 22 (14-36) U/L ALT 20 (4-34) U/L Alkaline Phosphatase 80 (38-126) U/L Total Protein 7.2 (6.3-8.2) g/dL Albumin 4.0 (3.5-5.0) g/dL Amylase 50 (30-110) U/L Lipase 107 (23-300) U/L Disposition Clinical Impression: Ascites, Abdominal pain Disposition: HOME SELF-CARE Condition: Stable Instructions (If sedation given, give patient instructions): Abdominal Pain (ED) Additional Instructions: Please follow up with your doctor. Return to the emergency department for new or worsening symptoms. Is patient prescribed a controlled substance at d/c from ED?: No Referrals: Doron Church DO [Primary Care Provider] - 1-2 days
--- NOTE | 2025-01-17 13:36 | XR ---
EXAMINATION TYPE: XR KUB DATE OF EXAM: 01/17/2025 COMPARISON: CT abdomen and pelvis 11/19/2024 HISTORY: Abdominal pain TECHNIQUE: Single upright KUB image of the abdomen is obtained FINDINGS: Small bowel demonstrates no evidence for dilatation or air fluid levels. Gas and fecal material is seen in non-distended colon. No convincing evidence for pneumoperitoneum. No unusual calcifications. The lung bases are clear. The osseous structures are intact. Degenerative changes of the lumbar spine. IMPRESSION: Overall nonobstructive bowel gas pattern. [facility], , 01/17/2025 1:33 PM
[2025-01-17 13:51] LABS: Basophils # (A) 0.05 10*3/uL (0.00-0.10); Basophils % (A) 0.4 %; Eosinophils # (A) 0.01 10*3/uL (0.04-0.35); Eosinophils % (A) 0.1 %; HCT 35.7 % (37.2-46.3); HGB 11.7 g/dL (12.0-15.0); Lymphocytes # (A) 0.73 10*3/uL (0.90-5.00); Lymphocytes % (A) 5.4 %; MCH 30.6 pg (27.0-32.0); MCHC 32.8 g/dL (32.0-37.0); MCV 93.5 fL (80.0-97.0); Mean Platelet Volume 11.3 fL (9.5-12.2); Monocytes # (A) 0.92 10*3/uL (0.20-1.00); Monocytes % (A) 6.8 %; Neutrophils # (A) 11.71 10*3/uL (1.80-7.70); Neutrophils % (A) 86.9 %; Platelet Count 446 10*3/uL (140-440); RBC 3.82 10*6/uL (4.10-5.20); RDW 12.4 % (11.5-14.5); WBC 13.47 10*3/uL (4.50-10.00)
[2025-01-17 14:04] LABS: ALT 20 U/L (4-34); AST 22 U/L (14-36); African American GFR (CKD) 59 (>60 ml/min/1.73 sqM); Alkaline Phosphatase 80 U/L (38-126); Amylase 50 U/L (30-110); Anion Gap 14 mmol/L; Blood Urea Nitrogen 27 mg/dL (7-17); Calcium 9.6 mg/dL (8.4-10.2); Carbon Dioxide 24 mmol/L (22-30); Chloride 100 mmol/L (98-107); Glucose 129 mg/dL (74-99); Lipase 107 U/L (23-300); Non-African American GFR(CKD) 51 (>60 ml/min/1.73 sqM); Potassium 4.1 mmol/L (3.5-5.1); Sodium 138 mmol/L (137-145); Total Bilirubin 0.6 mg/dL (0.2-1.3); Total Protein 7.2 g/dL (6.3-8.2)
[2025-01-17] MEDS: PANTOPRAZOLE 40 MG/10 ML VIAL IVP STA (16:28)
--- NOTE | 2025-01-17 16:28 | CT ---
EXAMINATION TYPE: CT abdomen pelvis w con DATE OF EXAM: 01/17/2025 COMPARISON: 11/19/2024 CLINICAL INDICATION: Female, 74 years old with history of abd pain, colonoscopy yesterday; PHH, RUQ a bdominal pain, colonoscopy done yesterday. TECHNIQUE: Performed without Oral Contrast and with IV Contrast, patient injected with 80 mL of Isovue 300. CT DLP: 1747.[address] CTDI: mGy Automated exposure control for dose reduction was used. FINDINGS: The lung bases are clear. The gallbladder is normal without distention, wall thickening, pericholecystic fluid or gallstones. T here is no biliary ductal dilatation. There is no focal mass or organomegaly involving the liver, pancreas, spleen or adrenal glands. There is no solid renal mass or hydronephrosis and there is homogeneous contrast enhancement of the r enal parenchyma. There is a 6.7 mm nonobstructing left renal calculus. The caliber the abdominal aorta is normal is no retroperitoneal adenopathy or hemorrhage. The bowel loops are normal in caliber and there is no evidence of dilatation or obstruction. There is stable moderate omental caking. There is moderate to marked ascites and there is been a sign ificant interval increase in the interval. There is surgical absence of the pelvis. There is no pelvic abscess or adenopathy. There is advanced degenerative disc disease throughout the lumbar spine but no focal destructive lesi ons. IMPRESSION: 1. Moderate to marked ascites which is increased significantly in the interval. 2. Moderate omental caking essentially unchanged compared to the prior study. 3. no bowel obstruction . 4. 6.7 mm nonobstructing left renal calculus. [facility], , 01/17/2025 4:26 PM
[2025-01-17] MEDS: SODIUM CHLORIDE 0.9% 1,000 ML IV ONE (16:33)
[2025-01-17 17:49] VITALS: BP 125/72; PULSE 73; RESP 17; TEMP 99.4
== END 2025-01-17 17:58 | disposition home or self-care (01) ==
LOC: EC 11:24
DX: R18.8 Other ascites (principal); R10.11 Right upper quadrant pain; Z91.040 Latex allergy status
CPT/HCPCS: 36415; 80053; 82150; 83690; 85025; 74018; 74177; 99284; 96374; Q9967; J2470; 96360